=== PATIENT | male | born 1950 | race Caucasian/White ===

== ENCOUNTER 2023-03-25 03:45 | Inpatient (IN) | payer MEDICARE, SELFPAY ==
[2023-03-24 21:43] VITALS: BP 123/73
[2023-03-24 21:44] VITALS: BP 123/73
[2023-03-24 21:47] VITALS: BMI 21.6
[2023-03-24 21:56] LABS: Venous Blood Gas B.E. -2.4 mmol/L (-4 to +4); Venous Blood Gas HCO3 24.5 mmol/L (22-27); Venous Blood Gas O2 Sat % 42.8 %; Venous Blood Gas pCO2 51 mmHg (35-48); Venous Blood Gas pH 7.29 (7.32-7.43); Venous Blood Gas pO2 30 mmHg (30-50)
[2023-03-24 21:57] LABS: % Basophils 0.6 % (0-2); % Eosinophils 0.2 % (0-6); % Immature Granulocytes 0.4 % (0-0.5); % Lymphocytes 3.2 % (20.5-51.1); % Monocytes 2.1 % (1.7-9.3); % Neutrophils 93.5 % (42.2-75.2); Absolute Basophils 0.1 10^3/uL (0-0.2); Absolute Immature Granulocytes 0.1 10^3/uL (0-0.05); Absolute Lymphocytes 0.6 10^3/uL (1.2-3.4); Absolute Monocytes 0.4 10^3/uL (0.1-0.6); Absolute Neutrophils 17.2 10^3/uL (1.4-6.5); Hematocrit 33.1 % (39.0-52.0); Hemoglobin 10.8 g/dL (13.0-18.0); Mean Corp Hgb Conc. 32.6 g/dL (33.0-37.0); Mean Corpuscular Hgb 29.1 pg (27.0-31.0); Mean Corpuscular Volume 89.2 fL (80.0-94.0); Nucleated Red Blood Cells % 0 % (-); Platelet Count 310 10^3/uL (130-400); Red Blood Cell Count 3.71 10^6/uL (4.70-6.10); Red Cell Dist. Width 16.9 % (11.5-14.5); White Blood Cell Count 18.4 10^3/uL (4.8-10.8)
[2023-03-24 22:00] VITALS: BP 105/64
[2023-03-24 22:10] LABS: ALT (SGPT) 26 U/L (0-50); AST (SGOT) 26 U/L (17-59); Albumin 3.6 g/dl (3.5-5.0); Alkaline Phosphatase 100 U/L (38-126); Blood Urea Nitrogen 80 mg/dl (9-20); Calcium 11.4 mg/dl (8.4-10.2); Carbon Dioxide 23 mmol/L (22-30); Chloride 103 mmol/L (98-107); Estimated Creatinine Clearance 28 ml/min; Glucose 126 mg/dl (70-99); Potassium 4.9 mmol/L (3.5-5.1); Sodium 137 mmol/L (135-145); Total Bilirubin 0.7 mg/dl (0.2-1.3); Total Protein 7.1 g/dl (6.3-8.2); eGFR 34.81
[2023-03-24 22:15] LABS: COVID-19 Antigen Negative (Negative)
[2023-03-24 22:22] LABS: NT-proBNP 340 pg/ml; Troponin I 0.018 ng/ml
--- NOTE | 2023-03-24 22:22 | ED.GENMED ---
History of Present Illness
General
Chief Complaint: Breathing Problem
Source: patient and family (Sister)
Exam Limitations: none
Time Seen by Provider: 03/24/23 22:02
Travel History
Have you had any contact with someone who has COVID-19?: No
Do you have any symptoms of coronavirus? Fever > 100 degrees, chills, cough, shortness of breath, sore throat, loss of taste or smell, muscle aches, or headache?: No
History of Present Illness
History of Present Illness:
This is a 73 year old male that comes in with c/o SOB. States that he is always SOB but today this got worse. States that he started with some low back pain. States that he has a cough. Denies any fever, chills, chest pain, abd pain, nausea,
vomiting, diarrhea, headache, dizziness. Patient has an indwelling galeano catheter.
Past History
Past History
ED Past Medical History: COPD (Emphysema), HTN, Hypothyroidism and Other (Hiatal hernia, Esophageal vidya)
ED Past Surgical History: Other (Cataracts, Hernia repair)
Social History
Tobacco: Former smoker
Alcohol: None
Personal: Single
Living: with family
Review of Systems
Review of Systems
All Other Systems: ROS reviewed and negative except as documented in HPI and ROS
Constitutional: Reports no symptoms; Denies fever or chills
EENT: Reports no symptoms
Respiratory: Reports cough and trouble breathing
Cardiac: Reports no symptoms; Denies chest pain
ABD/GI: Reports no symptoms; Denies abdominal pain, nausea, vomiting or diarrhea
: Reports no symptoms
Musculoskeletal: Reports back pain (Low back pain)
Skin: Reports no symptoms
Neurological: Reports no symptoms; Denies dizzy or headache
Psychiatric: Reports no symptoms
Phy Exam
General Physical Exam
General Presentation: mild distress
General age: appears stated age
General Skin: warm and dry
General Habitus: elderly
General Mental: alert
General Hydration: dry mucous membranes
ENT Exam
ENT Exam: TM's normal, pharynx normal and neck supple
Eye Exam
Eye Exam: EOMI
Cardiovascular Exam
Cardiovascular Exam: normal peripheral pulses and tachycardia
Pulmonary Exam
Pulmonary Exam: no rales, chest non tender, no crackles, no rhonchi, no wheezing, decreased breath sounds (at bases, ) and other (moist cough noted)
Gastrointestinal Exam
Gastrointestinal Exam: normal bowel sounds, non tender, soft, no organomegaly, no pulsatile mass and non distended
Musculoskeletal Exam
Musculoskeletal Exam: full ROM and edema (R>L pitting +2 lower legs)
Skin Exam
Skin Exam: normal color, warm/dry, no rash and no petechia
Psychiatric Exam
Psychiatric Exam: normal mood/affect
Scores
Heart Failure Risk
Heart Failure Risk Score: Not Applicable
Course
Orders/Labs/Results
Orders:
Orders
03/24/23 21:47
Electrocardiogram (*1) Urgent
Reason for Study: Other
Other Reason for Exam: Respiratory Distress
Cardiac Monitoring- Treatment ONCE
EKG- Treatment ONCE
IV Insert/Care/Rem.- Treatment PRN
O2 Therapy [RESP] Urgent
Titrate/Wean O2 to maintain O2 sat greater than (%): 93
Special Instructions: TO MAINTAIN CONTINUOUS O2 SATS >/= 93%
Pulse Ox/cont/shift [RESP] Urgent
Quantity: 1
Special Instructions: continuous pulse ox
03/24/23 21:49
Complete Blood Count/With Diff Urgent
Comprehensive Metabolic Panel Urgent
NT-proBNP Urgent
Troponin I Urgent
Venous Blood Gas Urgent
%Oxygen/Room Air: 87
03/24/23 21:51
COVID-19 Antigen Urgent
Source: Nasal Swab
Influenza A+B Rapid Molecular Urgent
JAMEY Source: Nasal Swab
Specimen Description:
03/24/23 22:13
CR Chest Portable - 1 View Urgent
Comment:
Reason For Exam: SOB
Reason Study Needs to be Portable: Patient Unstable
03/24/23 22:37
Urinalysis Reflex To Culture Urgent
Date Specimen was Collected: 03/24/23
Time Specimen was Collected: 22:36
Urine Microscopic Reflex Cult Urgent
Urine Culture Urgent
JAMEY Source: U
Specimen Description:
Date Specimen was Collected: 03/24/23
Time Specimen was Collected: 22:36
03/24/23 22:53
Cefepime HCl [Maxipime] 2,000 mg IV NOW STA
Vancomycin 1 Gram/200 ml [Vancocin] 1 gram in 200 ml IV NOW
03/24/23 22:57
Acetaminophen 1000MG/100Ml [Ofirmev] 1,000 mg in 100 ml IV ONCE
Acetaminophen IV Indication:: ED Narcotic Naive Pt-ONCE
Abnormal Lab Results
03/24/23 03/24/23
21:49 22:37
WBC 18.4 H 10^3/uL
(4.8-10.8)
RBC 3.71 L 10^6/uL
(4.70-6.10)
Hgb 10.8 L g/dL
(13.0-18.0)
Hct 33.1 L %
(39.0-52.0)
MCHC 32.6 L g/dL
(33.0-37.0)
RDW 16.9 H %
(11.5-14.5)
Abs Immat Gran (auto) 0.1 H 10^3/uL
(0-0.05)
Absolute Neuts (auto) 17.2 H 10^3/uL
(1.4-6.5)
Absolute Lymphs (auto) 0.6 L 10^3/uL
(1.2-3.4)
Neutrophils % 93.5 H %
(42.2-75.2)
Lymphocytes % 3.2 L %
(20.5-51.1)
VBG pH 7.29 L
(7.32-7.43)
VBG pCO2 51 H mmHg
(35-48)
BUN 80 H mg/dl
(9-20)
Creatinine 2.0 H mg/dL
(0.7-1.3)
Glucose 126 H mg/dl
(70-99)
Calcium 11.4 H mg/dl
(8.4-10.2)
Ur Occult Blood Reflex 4+ A
(Negative)
Leukocyte Esterase Rfl 2+ A
(Negative)
Urine RBC 21-25 A /HPF
(0-2)
Urine WBC (Reflex) >100 A /HPF
(0-5)
Urine Bacteria (Reflex) Many A
(Negative)
Urine Albumin (Reflex) 1+ A
(Neg - Trace)
03/24/23 21:49
03/24/23 21:49
Leukocytosis, H/H low. Acute renal failure, Glucose nonfasting. Calcium slightly elevated. Venous blood gas show respiratory acidosis.
COVID negative. Troponin 0.018, Pro-BNP 340
Vital Signs
Initial and Last Documented VS:
Initial Vital Signs
Temp Pulse Resp BP
98.3 F 143 22 123/73
03/24/23 21:43 03/24/23 21:43 03/24/23 21:43 03/24/23 21:43
Last Documented Vital Signs
Temp Pulse Resp BP Pulse Ox
98.3 F 137 34 105/64 94
03/24/23 21:43 03/24/23 22:45 03/24/23 22:45 03/24/23 22:00 03/24/23 22:45
MDM/Problems Addressed
Differential Diagnosis Includes:
SOB, Renal failure,
MDM/Problems Addressed:
This is a 73 year old male that comes in with c/o increased SOB. States that he also has low back pain.
Will get labs and chest x-ray. Will admit patient.
Back into see patient. Explained that he will be admitted as patient has a right lower lobe Pneumonia and is in renal failure. Will start IV antibiotics. Hospitalist notified.
Chronic conditions affecting care: COPD
Acute Exacerbation and/or Progression of Chronic Illness: COPD
*Pulse Oximetry
Patient hypoxic: no
*EKG
Interpreted by ED Provider?: Yes
Heart Rate: 144
Rate: tachycardiac
Rhythm: sinus tachycardia
Flatgap: normal axis
Interval: normal interval
QRS Pattern: normal QRS
Ischemia: non-specific ST changes
*[employer]house [employer] Interpretation
Rate: tachycardiac
Heart Rate: 141
Rhythm: sinus tachycardia
*Critical Care Note
Total Time (30-74mins, 75-104mins- exclusive of procedures): Not Applicable
ED Attending Note
-
Portions of this chart may have been created with voice recognition software.� Occasional wrong word or��sound alike� substitutions may have occurred due to the inherent limitations of voice recognition software.
Discharge Plan
Departure
Patient Disposition: Admit
Date of Disposition: 03/24/23
Time of Disposition: 23:01
Admit to: Telemetry
Presentation/result/management discussed w/ accepting MD/DO: Hospitalist
Patient with high blood pressure during this ER visit?: No
Condition: Fair
Covid-19: Negative COVID-19
Discharge Problem:
Right lower lobe pneumonia, Acute renal failure
Prescriptions:
No Action
atorvastatin [Lipitor] 20 mg Tablet
20 mg PO DAILY
levothyroxine [Synthroid] 75 mcg Tablet
75 mcg PO DAILY AT 0700
tamsulosin [Flomax] 0.4 mg Capsule
0.4 mg PO DAILY
nicotine (polacrilex) 4 mg Gum
4 mg BUCCAL Q2H
fluticasone propion-salmeterol [Advair Diskus] 500-50 mcg/dose Blister With Device
1 inh INHALATION R BID
albuterol sulfate [ProAir HFA] 90 mcg/actuation Hfa Aerosol Inhaler
2 puff INHALATION R Q6HPRN PRN (Reason: sob)
acetaminophen [Tylenol Extra Strength] 500 mg Tablet
1,000 mg PO BID
Culturelle 10 billion cell Capsule
1 cap PO DAILY
simethicone 80 mg Tablet,Chewable
80 mg PO BID
krill oil 500 mg Capsule
500 mg PO DAILY
Spiriva Respimat 2.5 mcg/actuation Mist
2 inh INHALATION R DAILY
[facility] 3 billion cell Capsule
2 cap PO DAILY Qty: 0 0RF
ceftriaxone 2 gram recon soln
2,000 mg IV QPM
Patient Comments:
PATIENT EXTENDED FOR ANOTHER 3 WEEKS STARTING 02-27-23 PER HIS PCP
fluconazole 200 mg Tablet
200 mg PO DAILY Qty: 18 0RF
pantoprazole 40 mg Tablet,Delayed Release (Dr/Ec)
40 mg PO DAILY Qty: 30 0RF
loperamide 2 mg Tablet
4 mg PO BID PRN (Reason: diarrhea) Qty: 0 0RF
Interventions
Interventions:
*Risk Screen - Suicide Last Done: 03/24/23 21:48
*General Assessment Last Done: 03/24/23 21:48
*Neglect/Abuse Screening Last Done: 03/24/23 21:48
ED- Fall Risk Assessment Last Done: 03/24/23 21:54
*ED COVID-19 Vaccine History Last Done: 03/24/23 21:48
ED- Cardiac Assessment Last Done: 03/24/23 21:52
ED- Pulmonary Assessment Last Done: 03/24/23 21:52
[2023-03-24 22:43] LABS: Urine Albumin 1+ (Neg - Trace); Urine Bilirubin Negative (Negative); Urine Character Very Cloudy (Clear); Urine Color Yellow; Urine Glucose Negative (Negative); Urine Ketone Negative (Negative); Urine Leukocyte 2+ (Negative); Urine Nitrite Negative (Negative); Urine Occult Blood 4+ (Negative); Urine Specific Gravity 1.015 (<1.030); Urine Urobilinogen Negative (Neg - 1+)
[2023-03-24 22:54] LABS: Urine Squamous Cell 0-2 /LPF (Few)
[2023-03-24 22:55] LABS: Urine Bacteria Many (Negative); Urine Red Blood Cell 21-25 /HPF (0-2); Urine White Cell >100 /HPF (0-5); Urine White Cell Cast >15 /LPF
[2023-03-24 23:00] VITALS: BP 105/61
[2023-03-24] MEDS: MAXIPIME 2000 MG IV (23:19)
[2023-03-24] MEDS: OFIRMEV 100 IV (23:29)
[2023-03-24] MEDS: VANCOCIN 200 IV (23:45)
[2023-03-25] VITALS (50 sets, daily range): BP systolic 95–184; BP diastolic 55–123; PULSE 2–100; BMI 21.0
--- NOTE | 2023-03-25 00:07 | ED.GENMED ---
History of Present Illness
General
Chief Complaint: Breathing Problem
Time Seen by Provider: 03/24/23 22:02
Travel History
Have you had any contact with someone who has COVID-19?: No
Do you have any symptoms of coronavirus? Fever > 100 degrees, chills, cough, shortness of breath, sore throat, loss of taste or smell, muscle aches, or headache?: No
Past History
Past History
ED Past Medical History: COPD (Emphysema), HTN, Hypothyroidism and Other (Hiatal hernia, Esophageal vidya)
ED Past Surgical History: Other (Cataracts, Hernia repair)
Social History
Tobacco: Former smoker
Alcohol: None
Personal: Single
Living: with family
Course
Orders/Labs/Results
Orders:
Orders
03/24/23 21:47
Electrocardiogram (*1) Urgent
Reason for Study: Other
Other Reason for Exam: Respiratory Distress
Cardiac Monitoring- Treatment ONCE
EKG- Treatment ONCE
IV Insert/Care/Rem.- Treatment PRN
O2 Therapy [RESP] Urgent
Titrate/Wean O2 to maintain O2 sat greater than (%): 93
Special Instructions: TO MAINTAIN CONTINUOUS O2 SATS >/= 93%
Pulse Ox/cont/shift [RESP] Urgent
Quantity: 1
Special Instructions: continuous pulse ox
03/24/23 21:49
Complete Blood Count/With Diff Urgent
Comprehensive Metabolic Panel Urgent
NT-proBNP Urgent
Troponin I Urgent
Venous Blood Gas Urgent
%Oxygen/Room Air: 87
03/24/23 21:51
COVID-19 Antigen Urgent
Source: Nasal Swab
Influenza A+B Rapid Molecular Urgent
JAMEY Source: Nasal Swab
Specimen Description:
03/24/23 22:13
CR Chest Portable - 1 View Urgent
Comment:
Reason For Exam: SOB
Reason Study Needs to be Portable: Patient Unstable
03/24/23 22:37
Urinalysis Reflex To Culture Urgent
Date Specimen was Collected: 03/24/23
Time Specimen was Collected: 22:36
Urine Microscopic Reflex Cult Urgent
Urine Culture Urgent
JAMEY Source: U
Specimen Description:
Date Specimen was Collected: 03/24/23
Time Specimen was Collected: 22:36
03/24/23 22:53
Cefepime HCl [Maxipime] 2,000 mg IV NOW STA
Vancomycin 1 Gram/200 ml [Vancocin] 1 gram in 200 ml IV NOW
03/24/23 22:57
Acetaminophen 1000MG/100Ml [Ofirmev] 1,000 mg in 100 ml IV ONCE
Acetaminophen IV Indication:: ED Narcotic Naive Pt-ONCE
03/24/23 23:18
Sterile Water [Sterile Water For Injection] 10 ml .ROUTE .STK-MED ONE
Abnormal Lab Results
03/24/23 03/24/23
21:49 22:37
WBC 18.4 H 10^3/uL
(4.8-10.8)
RBC 3.71 L 10^6/uL
(4.70-6.10)
Hgb 10.8 L g/dL
(13.0-18.0)
Hct 33.1 L %
(39.0-52.0)
MCHC 32.6 L g/dL
(33.0-37.0)
RDW 16.9 H %
(11.5-14.5)
Abs Immat Gran (auto) 0.1 H 10^3/uL
(0-0.05)
Absolute Neuts (auto) 17.2 H 10^3/uL
(1.4-6.5)
Absolute Lymphs (auto) 0.6 L 10^3/uL
(1.2-3.4)
Neutrophils % 93.5 H %
(42.2-75.2)
Lymphocytes % 3.2 L %
(20.5-51.1)
VBG pH 7.29 L
(7.32-7.43)
VBG pCO2 51 H mmHg
(35-48)
BUN 80 H mg/dl
(9-20)
Creatinine 2.0 H mg/dL
(0.7-1.3)
Glucose 126 H mg/dl
(70-99)
Calcium 11.4 H mg/dl
(8.4-10.2)
Ur Occult Blood Reflex 4+ A
(Negative)
Leukocyte Esterase Rfl 2+ A
(Negative)
Urine RBC 21-25 A /HPF
(0-2)
Urine WBC (Reflex) >100 A /HPF
(0-5)
Urine Bacteria (Reflex) Many A
(Negative)
Urine Albumin (Reflex) 1+ A
(Neg - Trace)
03/24/23 21:49
03/24/23 21:49
Vital Signs
Initial and Last Documented VS:
Initial Vital Signs
Temp Pulse Resp BP
98.3 F 143 22 123/73
03/24/23 21:43 03/24/23 21:43 03/24/23 21:43 03/24/23 21:43
Last Documented Vital Signs
Temp Pulse Resp BP Pulse Ox
98.3 F 137 34 105/64 94
03/24/23 21:43 03/24/23 22:45 03/24/23 22:45 03/24/23 22:00 03/24/23 22:45
ED Attending Note
-
Portions of this chart may have been created with voice recognition software.� Occasional wrong word or��sound alike� substitutions may have occurred due to the inherent limitations of voice recognition software.
Discharge Plan
Departure
Patient Disposition: Admit
Date of Disposition: 03/24/23
Time of Disposition: 23:01
Admit to: Telemetry
Presentation/result/management discussed w/ accepting MD/DO: Hospitalist
Patient with high blood pressure during this ER visit?: No
Condition: Fair
Covid-19: Negative COVID-19
Discharge Problem:
Right lower lobe pneumonia, Acute renal failure
Prescriptions:
No Action
atorvastatin [Lipitor] 20 mg Tablet
20 mg PO DAILY
levothyroxine [Synthroid] 75 mcg Tablet
75 mcg PO DAILY AT 0700
tamsulosin [Flomax] 0.4 mg Capsule
0.4 mg PO DAILY
nicotine (polacrilex) 4 mg Gum
4 mg BUCCAL Q2H
fluticasone propion-salmeterol [Advair Diskus] 500-50 mcg/dose Blister With Device
1 inh INHALATION R BID
albuterol sulfate [ProAir HFA] 90 mcg/actuation Hfa Aerosol Inhaler
2 puff INHALATION R Q6HPRN PRN (Reason: sob)
acetaminophen [Tylenol Extra Strength] 500 mg Tablet
1,000 mg PO BID
Culturelle 10 billion cell Capsule
1 cap PO DAILY
simethicone 80 mg Tablet,Chewable
80 mg PO BID
Spiriva Respimat 2.5 mcg/actuation Mist
2 inh INHALATION R DAILY
[facility] 3 billion cell Capsule
2 cap PO DAILY Qty: 0 0RF
fluconazole 200 mg Tablet
200 mg PO DAILY Qty: 18 0RF
loperamide 2 mg Tablet
4 mg PO BID PRN (Reason: diarrhea) Qty: 0 0RF
omeprazole 10 mg Capsule,Delayed Release(Dr/Ec)
10 mg PO DAILY
Interventions
Interventions:
*Risk Screen - Suicide Last Done: 03/24/23 21:48
*General Assessment Last Done: 03/24/23 21:48
*Neglect/Abuse Screening Last Done: 03/24/23 21:48
ED- Fall Risk Assessment Last Done: 03/24/23 21:54
*ED COVID-19 Vaccine History Last Done: 03/24/23 21:48
ED- Cardiac Assessment Last Done: 03/24/23 23:30
ED- Pulmonary Assessment Last Done: 03/24/23 23:59
[2023-03-25] MEDS: NSS 1000 IV ×2 (00:48→04:57)
[2023-03-25] MEDS: DECADRON 20 MG IV (01:15)
[2023-03-25] MEDS: XOPENEX 1.25 MG INHALANT SOLUTION INH ×3 (01:15→19:59)
[2023-03-25] MEDS: MORPHINE SULFATE 2 MG IV ×4 (02:37→13:37)
--- NOTE | 2023-03-25 02:41 | HPS.HSE ---
Family Physician
-
Family Physician: Michael Green MD
Chief Complaint
-
Allergies
Allergy/AdvReac Type Severity Reaction Status Date / Time
sulfamethoxazole Allergy Unknown Verified 03/24/23 21:43
[From Bactrim]
trimethoprim [From Bactrim] Allergy Unknown Verified 03/24/23 21:43
Home Medications
Lactobacillus rhamnosus GG 10 billion cell capsule (Culturelle) 1 cap PO DAILY probiotic 01/20/23
acetaminophen 500 mg tablet (Tylenol Extra Strength) 1,000 mg PO BID Pain 01/20/23
albuterol sulfate 90 mcg/actuation aerosol inhaler (ProAir HFA) 2 puff inhalation R Q6HPRN PRN sob 01/20/23
atorvastatin 20 mg tablet (Lipitor) 20 mg PO DAILY High Cholesterol 01/20/23
fluticasone 500 mcg-salmeterol 50 mcg/dose blistr powdr for inhalation (Advair Diskus) 1 inh inhalation R BID Lung/Breathing Issues 01/20/23
levothyroxine 75 mcg tablet (Synthroid) 75 mcg PO DAILY AT 0700 Thyroid 01/20/23
nicotine (polacrilex) 4 mg gum 4 mg buccal Q2H Smoking Cessation 01/20/23
simethicone 80 mg chewable tablet 80 mg PO BID gas 01/20/23
tamsulosin 0.4 mg capsule (Flomax) 0.4 mg PO DAILY Urinary Issue 01/20/23
tiotropium bromide 2.5 mcg/actuation mist for inhalation (Spiriva Respimat) 2 inh inhalation R DAILY Lung/Breathing Issues 01/20/23
Lactobacillus rhamnosus-Bifidobac. animalis 3 billion cell capsule (BrightLine) 2 cap PO DAILY probiotic #0 caps 01/29/23
fluconazole 200 mg tablet 200 mg PO DAILY #18 tabs 03/10/23
loperamide 2 mg tablet 4 mg PO BID PRN diarrhea #0 tabs 03/10/23
omeprazole 10 mg capsule,delayed release 10 mg PO DAILY 03/24/23
History of Present Illness
The patient is a 73 yo male with PMH significant for discharged from the hospital 03/10/23 due to Pulmonary Nocardia infection and severe COPD and has not tolerated outpatient IV Rocephin and has declined oral antibiotics, with discussion regarding
Palliative care, per discussion with the patient's sister. The patient comes to the ED with acute worsening of dyspnea at rest and on exertion along with significant lower back pain. He has redness of sacral region from pressure wound, no skin tear
noted at bedside. He sees Dr. Guillory outpatient. He denies CP, no n/v/d, no abdominal complaints. No fevers. He has a cough and SOB and increased work of breathing that he is attributing to low back discomfort from the bed sheets sticking to his low
back. He has chronic indwelling Cohen catheter.
ED txt:
IV Cefepime
IV Vancomycin
Ofirmev
IV fluid bolus 1 L
Decadron 20 mg IV once
Xopenex
Morphine 2 mg IV once
Medical History
Past Medical History
Past Medical History: Reports Other
Additional Past Medical History:
chronic hypoxic respiratory failure
Nocardia infection
COPD
htn
LE edema
GERD
BPH
urinary retention
HLD
hypothyroidism
Past Surgical History: Reports Other
Additional Past Surgical History:
Bilateral cataract surgery
Hernia repair
Social History
Tobacco: Former Smoker
Alcohol: Former
Drug: None
Personal: Single
Living: With Family
Family History
Family History: Not pertinent
Allergies / Home Medications
Allergies reflects when Allergies were last updated in [facility].
Home Medications with original date entered in [facility]
Allergy/Medication List:
Allergies
Allergy/AdvReac Type Severity Reaction Status Date / Time
sulfamethoxazole Allergy Unknown Verified 03/24/23 21:43
[From Bactrim]
trimethoprim [From Bactrim] Allergy Unknown Verified 03/24/23 21:43
Home Medications
Lactobacillus rhamnosus GG 10 billion cell capsule (Culturelle) 1 cap PO DAILY probiotic 01/20/23
acetaminophen 500 mg tablet (Tylenol Extra Strength) 1,000 mg PO BID Pain 01/20/23
albuterol sulfate 90 mcg/actuation aerosol inhaler (ProAir HFA) 2 puff inhalation R Q6HPRN PRN sob 01/20/23
atorvastatin 20 mg tablet (Lipitor) 20 mg PO DAILY High Cholesterol 01/20/23
fluticasone 500 mcg-salmeterol 50 mcg/dose blistr powdr for inhalation (Advair Diskus) 1 inh inhalation R BID Lung/Breathing Issues 01/20/23
levothyroxine 75 mcg tablet (Synthroid) 75 mcg PO DAILY AT 0700 Thyroid 01/20/23
nicotine (polacrilex) 4 mg gum 4 mg buccal Q2H Smoking Cessation 01/20/23
simethicone 80 mg chewable tablet 80 mg PO BID gas 01/20/23
tamsulosin 0.4 mg capsule (Flomax) 0.4 mg PO DAILY Urinary Issue 01/20/23
tiotropium bromide 2.5 mcg/actuation mist for inhalation (Spiriva Respimat) 2 inh inhalation R DAILY Lung/Breathing Issues 01/20/23
Lactobacillus rhamnosus-Bifidobac. animalis 3 billion cell capsule (BrightLine) 2 cap PO DAILY probiotic #0 caps 01/29/23
fluconazole 200 mg tablet 200 mg PO DAILY #18 tabs 03/10/23
loperamide 2 mg tablet 4 mg PO BID PRN diarrhea #0 tabs 03/10/23
omeprazole 10 mg capsule,delayed release 10 mg PO DAILY 03/24/23
Review of Systems
-
A 12 point ROS was completed and negative except as noted: Yes
Physical Exam
Vital Signs
Vital Signs
Temp Pulse Resp BP Pulse Ox
98.4 F 118 26 131/86 94
03/25/23 00:37 03/25/23 02:00 03/25/23 02:00 03/25/23 02:00 03/25/23 02:00
Physical Exam
General: Appears Chronically Ill, Cachectic and Other (respiratory distress)
HEENT: NormoCephalic and Anicteric
Respiratory: Rales, Rhonchi and Accessory Resp Muscle Use
Cardiac: S1/S2 and Tachycardia
GI: Soft, Non Tender and Non Distended
Musculoskeletal: No Clubbing, No Cyanosis and No Edema
Skin: Warm and Dry
Neuro: No Motor Deficits and Nonfocal/grossly intact
Psych: Agitated (dyspnea)
Laboratory Results
-
03/24/23 21:49
03/24/23 21:49
Laboratory Results
Total Bilirubin 0.7 mg/dl (0.2-1.3) 03/24/23 21:49
AST 26 U/L (17-59) 03/24/23 21:49
ALT 26 U/L (0-50) 03/24/23 21:49
Alkaline Phosphatase 100 U/L (38-126) 03/24/23 21:49
Troponin I 0.018 ng/ml 03/24/23 21:49
Impression/Plan
-
IMPRESSION:
The patient is a 73 yo male with PMH significant for discharged from the hospital 03/10/23 due to Pulmonary Nocardia infection and severe COPD and has not tolerated outpatient IV Rocephin and has declined oral antibiotics, with discussion regarding
Palliative care, per discussion with the patient's sister. The patient comes to the ED with acute worsening of dyspnea at rest and on exertion along with significant lower back pain. He has redness of sacral region from pressure wound, no skin tear
noted at bedside. He sees Dr. Guillory outpatient. He denies CP, no n/v/d, no abdominal complaints. No fevers. He has a cough and SOB and increased work of breathing that he is attributing to low back discomfort from the bed sheets sticking to his low
back. He has chronic indwelling Cohen catheter.
ED txt:
IV Cefepime
IV Vancomycin
Ofirmev
IV fluid bolus 1 L
Decadron 20 mg IV once
Xopenex
Morphine 2 mg IV once
#Concern for sepsis due to pneumonia likely bacteria, health-care associated, patchy infiltrates worse than prior exam, pending radiology report, associated with tachypnea and increased work of breathing
WBC 18.4, tachycardia, tachypnea, pH 7.29
-Cont IV Cefepime and IV Vancomycin
-IVF
-ID Cx
-blood ,urine, sputum cultures, MAXI
#COPD exacerbation
-Nebs, steroids, O2
#Nocardia infection, not currently treated s/p IV Rocephin not tolerated nor orals
-discuss with ID in am
-O2
-cont IV abx for possible bacterial superinfection
#YAO, concern for dehydration
creat 2.0 from 1.5 (03/10/23)
-IVF, renally dose meds, repeat labs in am and monitor electrolytes
#UTI, complicated by chronic indwelling Cohen catheter
-blood and urine cx
-IV abx
#Hypercalcium
-Check ionized calcium , IVF, repeat labs in am and monitor
Chronic medical issues:
chronic hypoxic respiratory failure
Nocardia infection
HTN
LE edema
GERD
BPH
urinary retention, Cohen catheter care
HLD
Hypothyroidism
DNR, DNI
DVT proph - Lovenox
[2023-03-25 03:46] LABS: HCO3 16.6 mmol/L (21-28); O2 Saturation % 99.1 % (94-98); PCO2 30 mmHg (35-48); PO2 103 mmHg (83-108); pH 7.35 (7.35-7.45)
[2023-03-25] MEDS: DECADRON 4 MG IV ×3 (04:57→19:35)
[2023-03-25 05:09] LABS: Hematocrit 31.6 % (39.0-52.0); Hemoglobin 10.2 g/dL (13.0-18.0); Mean Corp Hgb Conc. 32.3 g/dL (33.0-37.0); Mean Corpuscular Hgb 28.9 pg (27.0-31.0); Mean Corpuscular Volume 89.5 fL (80.0-94.0); Mean Platelet Volume 9.6 fL (7.4-10.4); Platelet Count 287 10^3/uL (130-400); Red Blood Cell Count 3.53 10^6/uL (4.70-6.10); Red Cell Dist. Width 17.1 % (11.5-14.5); White Blood Cell Count 14.3 10^3/uL (4.8-10.8)
--- NOTE | 2023-03-25 05:15 | PTCARENOTE ---
Received pt from ED RN. Pt pulled over from the stretcher to our bed. Pt arrived on bipap, pt unable to tolerate it, pt placed on 15L midflow, O2 sat 93%, lungs are diminished, tachypneic, pursed lip breathing. AAOx3. Sinus tach on the monitor, RLE
+2 edema and LLE +1 edema. Chronic galeano in place, hygiene provided. PRN Morphine provided due to SOB. Pt c/o 10/ back pain, ANGELICA Kwan notified. CHG bath provided. Pt is laying in bed with call huerta in reach.
[2023-03-25] MEDS: SYNTHROID 75 MCG PO (05:22)
[2023-03-25 05:49] LABS: ALT (SGPT) 26 U/L (0-50); AST (SGOT) 29 U/L (17-59); Albumin 3.4 g/dl (3.5-5.0); Alkaline Phosphatase 92 U/L (38-126); Blood Urea Nitrogen 80 mg/dl (9-20); Calcium 10.3 mg/dl (8.4-10.2); Carbon Dioxide 16 mmol/L (22-30); Chloride 109 mmol/L (98-107); Estimated Creatinine Clearance 25 ml/min; Glucose 123 mg/dl (70-99); Sodium 136 mmol/L (135-145); Total Bilirubin 0.6 mg/dl (0.2-1.3); Total Protein 6.7 g/dl (6.3-8.2); eGFR 31.05
[2023-03-25 06:32] LABS: Hepatitis C Antibody Negative (Negative)
[2023-03-25] MEDS: VENTOLIN NEBULES 2.5 MG INH (07:28)
[2023-03-25 08:06] LABS: Absolute Neutrophils -Man Diff 13.4 10^3/uL (1.4-6.5); Band Neutrophils 18 % (0-3); Segmented Neutrophils 76 % (42-75)
[2023-03-25 08:07] LABS: Lymphocytes 1 % (20-51); Metamyelocytes 3 % (-); Monocytes 1 % (2-9); Myelocytes 1 % (-); Normal RBC Morphology Yes; Platelets Checked Yes; Total Cells Counted 100
[2023-03-25] MEDS: PROTONIX 10 MG PO (08:42)
[2023-03-25] MEDS: HEPARIN 5000 UNITS SC ×2 (08:43→19:35)
--- NOTE | 2023-03-25 08:51 | W.PN.HOSP.TC ---
Today's Communication/Plan
-
check STAT ABG
tachycardic/tachypneic--will not be able to sustain himself--now FULL CODE
transfer to ICU
consult underwear trimmer
await ID
will likely need intubation soon
Assessment / Plan
Assessment / Plan
pt is a 73 year old male
Severe sepsis with metabolic acidosis, hypoxemic respiratory failure due to pneumonia (likely bacteria, health-care associated, patchy infiltrates worse than prior exam) UTI (CAUTI POA as pt with chronic galeano on admission) and YAO--
WBC 18.4, tachycardia, tachypnea, pH 7.29--transfer to ICU--pt refuses BiPAP and when asked about code status he says he 'can't think straight'--spoke with sister who reversed code status to FULL CODE at least to give ABX a chance to work--await ID
input--cont vanco/cefepime--check ABG--cont sepsis IVF--follow cultures--consult underwear trimmer--check STAT ABG--cont nebs/steroids--likely will be intubated before days' end
COPD exacerbation--Nebs, steroids, O2
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
YAO-- likely due to sepsis--creat worsening--cont IVF and ASSEMBLY HAND galeano--consider renal consult--creat 2.0 from 1.5 (03/10/23)
UTI--(CAUTI as pt with chronic galeano cath on admission) --blood and urine cx--IV abx
Hypercalcemia--Check ionized calcium , IVF, repeat labs in am and monitor
Chronic medical issues:
chronic hypoxic respiratory failure
Nocardia infection--as able
Essential HTN
LE edema
GERD
BPH
urinary retention, Galeano catheter care
HLD
Hypothyroidism--check TSH
code status--reverse by sister as pt 'cannot think straight'--FULL CODE NOW--will need intubation
DVT proph - Lovenox
spoke with sister
Total Critical Care Time 40 minutes. I was immediately available to the patient and staff. I personally examined, reviewed labs, diagnostic images/reports, interpretations, treatment plans, discussed patient care with other providers and family
or caregivers (if patient is unable to make decisions), entered orders as appropriate and documented the medical record.
Anticipated Discharge: > 48 hours
Subjective/Interval History
-
Date of Service: March 25, 2023
pt in obvious resp distress--on HI--absolutely refuses BIPAP--explained he will be intubated--he understands
Objective Data
-
Labs:
Laboratory Results
03/24/23 03/25/23 03/25/23
21:49 03:40 04:47
WBC 18.4 H 14.3 H
Hgb 10.8 L 10.2 L
Hct 33.1 L 31.6 L
Plt Count 310 287
PT 15.0 H
INR 1.20
HCO3 16.6 L
Sodium 137 136
Potassium 4.9 5.0
Chloride 103 109 H
Carbon Dioxide 23 16 L
BUN 80 H 80 H
Creatinine 2.0 H 2.2 H
Glucose 126 H 123 H
Calcium 11.4 H 10.3 H
Total Bilirubin 0.7 0.6
AST 26 29
ALT 26 26
Alkaline Phosphatase 100 92
Vital Signs:
max temp for 24 hours
03/25/23
00:37
Temp 98.4 F
Vital Signs
Temp Pulse Resp BP Pulse Ox
97.7 F 123 34 136/76 95
03/25/23 07:46 03/25/23 06:00 03/25/23 06:00 03/25/23 06:00 03/25/23 06:00
I&O
03/24/23 03/25/23 03/26/23
06:59 06:59 06:59
Output Total 200 / 200
Balance -200 / -200
Review of Systems
-
Unable to obtain full review of systems at this time due to: Acuity
Physical Exam
-
General: Appears Chronically Ill and Cachectic
HEENT: Normocephalic, Atraumatic and Oxygen (HI RADHA)
Respiratory: Rhonchi (all right lung field)
Cardiac: Regular Rhythm, S1/S2 and Tachycardic
GI: Soft, Nontender, Nondistended and Normal Bowel Sounds
Musculoskeletal: No Clubbing and No Cyanosis; Negative No Edema (trace edema bilaterally)
Skin: Warm
Neuro: Awake
--- NOTE | 2023-03-25 08:55 | PHA.VAN.IN ---
Assessment
- Assessment
Renal Function: Unknown baseline (elevated compared to prior admissions - 2.2 vs low of 1.2)
Concomitant Antimicrobials: cefepime
Plan
- Plan
Initial / Loading Dose: 1000mg - 03/24 23:45 PLUS 500mg x1 today
Maintenance Regimen: dosing by level
Monitoring: random 03/26 0600
MRSA Screen: Ordered per protocol
Pharmacokinetics Vancomycin I
- -
Patient Age: 73
Patient Sex: Male
Vancomycin Day #: 1
Indication: Pulmonary/Respiratory
Requesting Provider: Dr. Bradley
Pertinent Antimicrobial Allergies:
sulfamethoxazole/trimethoprim - unknown
Height / Weight:
Height 5 ft 5 in
Actual Weight 57.2 kg
- Vital Signs / Lab Results
Temp Pulse Resp BP Pulse Ox
97.7 F 123 34 136/76 95
03/25/23 07:46 03/25/23 06:00 03/25/23 06:00 03/25/23 06:00 03/25/23 06:00
Lab Results - Hematology
03/24/23 03/25/23
21:49 04:47
WBC 18.4 H 14.3 H
Band Neutrophils 18 H
Lab Results - Chemistry
03/24/23 03/25/23
21:49 04:47
BUN 80 H 80 H
Creatinine 2.0 H 2.2 H
Estimated Creat Clear 28 25
Albumin 3.6 3.4 L
03/25/23
04:47
Lactic Acid 2.0
Lab Results - Urine
03/24/23
22:37
Urine Nitrite (Reflex) Negative
Leukocyte Esterase Rfl 2+ A
Urine WBC (Reflex) >100 A
Ur Squamous Epith Cells 0-2
Urine Bacteria (Reflex) Many A
Microbiology Results
03/24/23 21:51 Influenza Types A & B (BREANNA) - Final
Nasal Swab Negative for Influenza A & B, NAAT
Negative results must be combined with clinical observations
and patient history.
Nucleic Acid Amplification test (NAAT)performed on the
[employer] platform.
--- NOTE | 2023-03-25 09:16 | PTCARENOTE ---
Patient too short of breath to take po medications at this time. Dr. Galeana to room to see patient. Possible transfer to ICU.
[2023-03-25 09:22] LABS: B.E. -8.5 mmol/L; HCO3 17.3 mmol/L (21-28); PCO2 36 mmHg (35-48); PO2 152 mmHg (83-108); pH 7.29 (7.35-7.45)
--- NOTE | 2023-03-25 09:54 | CM ---
Patient with Dx Severe sepsis with metabolic acidosis, hypoxemic respiratory failure due to PNA, COPD exacerbation, nocardia infection, YAO, UTI. High flow O2. BIPAP. Plan transfer to ICU.
Spoke with patient's sister Aimee;
the patient resides with his sister Aimee in her 2 story house with 2 IBAN.
The patient has not been doing well since he was discharged from a few weeks ago.
He has been sleeping in a chair with ottoman and sitting in same chair most of the day.
He was able to ambulate to the bathroom 12 feet with his RW with multiple stops, to wash up at the sink once every few weeks.
Aimee was assisting the patient with his galeano catheter care.
DME - RW, O2 concentrator/portables through [facility]
No prior VN or SNF.
PCP - Michael Green (not seen yet)
Pharmacy - [facility]
The patient had recently had service with [facility] for home IV Abx which have stopped. He have [facility] nurse for teaching (no VN).
He has a brother and 2 other sisters. Aimee had planned to get POA paperwork completed but did not get around to it.
She thinks patient was referred to Palliative Care but they had not contacted him.
Aimee says she spoke with Dr Chun today and is aware of patient's current status and that he would be transferred to ICU. She expressed concern that he was not doing well and may not be able to return home. She says Dimitris called her after he
arrived here and she spoke with him. Offered Property Maintenance Supervisor for patient and Aimee declined saying patient would not want.
Plan CM continuing to follow for d/c needs.
Plan TBD.
[2023-03-25] MEDS: DIFLUCAN PO (10:15)
[2023-03-25] MEDS: FLOMAX PO (10:16)
--- NOTE | 2023-03-25 10:27 | CON.INTV ---
Consultation
Consultation Request
Date/Time Consultation Requested: 03/25/2023 - 1003
Date/Time Consultation Performed: 03/25/2023 - 1004
Requesting Provider: Dr. Chun
Performing Provider: Dr. Slade
Reason for Consultation: SOB/hypoxia
Medical History
-
Chief Complaint: SOB
History of Present Illness:
73-year-old male with a past medical history of COPD, emphysema, pulmonary nocardiosis and chronic hypoxemic respiratory failure on 3 L/min with exertion who was recently hospitalized from 03/04or acute anemia with heme positive stool
found to have esophageal candidiasis on EGD with polyps and diverticulosis on colonoscopy. Patient now presents with shortness of breath and body aches. Patient afebrile in the ER to 98.4 �F, tachycardic to 115, tachypneic to 32, and initially
required aerosol mask. Imaging was suggestive of a recurrent bilateral pneumonia. Labs suggestive of YAO, hypercalcemia, leukocytosis, anemia with Hb 10.8, platelets 310. COVID antigen negative. Urinalysis positive suggestive of UTI. Patient
started on antibiotics in the ER, given 1 L NS, Decadron 20 mg, Xopenex and admitted to the IMU for further care. His oxygen requirements unfortunately worsened and he became more tachypneic/SOB and was transferred to ICU this morning for further
care, and critical care services consulted for additional management/recommendations.
When I saw the patient this morning he was clearly in respiratory distress, on high flow nasal cannula, refused to go on BiPAP, and a previous conversation held between the hospitalist and patient's sister I decided to change CODE STATUS to full
code. Of note, patient seen Dr. Luna on 03/14/2023 in the office where he was started on DuoNebs q6hr, Breztri and spirometry was reviewed indicating severe disease. Hospice was brought up at that office visit and patient was amenable to that time.
Patient currently too short of breath and in acute distress to make decision about his code status. He currently denies chest pain, headache, abdominal pain, chills.
PMHx: Chronic respiratory failure on home oxygen, COPD/emphysema, hypertension, hyperlipidemia, hypothyroidism, BPH, PAD, GERD, venous insufficiency, former tobacco use disorder, anemia, pulmonary nocardiosis
PSHx: Bilateral cataract surgery, hernia repair
Past Medical History
Past Medical History: Other (Above as per HPI)
Past Surgical History: Other (Above as per HPI)
Social History
Tobacco: Former Smoker
Alcohol: None
Drug: None
Family History
Family History: Reviewed & Not Pertinent
Allergies / Home Medications
Allergies
Allergy/AdvReac Type Severity Reaction Status Date / Time
sulfamethoxazole Allergy Unknown Verified 03/24/23 21:43
[From Bactrim]
trimethoprim [From Bactrim] Allergy Unknown Verified 03/24/23 21:43
Home Medications
Medication Instructions Recorded Confirmed Last Taken Type
Lactobacillus rhamnosus GG 10 1 cap PO DAILY probiotic 01/20/23 03/24/23 03/04/23 History
billion cell capsule (Culturelle)
acetaminophen 500 mg tablet 1,000 mg PO BID Pain 01/20/23 03/24/23 03/04/23 History
(Tylenol Extra Strength)
albuterol sulfate 90 mcg/actuation 2 puff inhalation R Q6HPRN PRN sob 01/20/23 03/24/23 Unknown History
aerosol inhaler (ProAir HFA)
atorvastatin 20 mg tablet (Lipitor) 20 mg PO DAILY High Cholesterol 01/20/23 03/24/23 03/04/23 History
fluticasone 500 mcg-salmeterol 50 1 inh inhalation R BID 01/20/23 03/24/23 03/04/23 History
mcg/dose blistr powdr for Lung/Breathing Issues
inhalation (Advair Diskus)
levothyroxine 75 mcg tablet 75 mcg PO DAILY AT 0700 Thyroid 01/20/23 03/24/23 03/04/23 History
(Synthroid)
nicotine (polacrilex) 4 mg gum 4 mg buccal Q2H Smoking Cessation 01/20/23 03/24/23 03/04/23 History
simethicone 80 mg chewable tablet 80 mg PO BID gas 01/20/23 03/24/23 03/04/23 History
tamsulosin 0.4 mg capsule (Flomax) 0.4 mg PO DAILY Urinary Issue 01/20/23 03/24/23 03/04/23 History
tiotropium bromide 2.5 2 inh inhalation R DAILY 01/20/23 03/24/23 03/04/23 History
mcg/actuation mist for inhalation Lung/Breathing Issues
(Spiriva Respimat)
Lactobacillus rhamnosus-Bifidobac. 2 cap PO DAILY probiotic #0 caps 01/29/23 03/24/23 03/04/23 Rx
animalis 3 billion cell capsule
([employer])
fluconazole 200 mg tablet 200 mg PO DAILY #18 tabs 03/10/23 03/24/23 Unknown Rx
loperamide 2 mg tablet 4 mg PO BID PRN diarrhea #0 tabs 03/10/23 03/24/23 03/04/23 Rx
omeprazole 10 mg capsule,delayed 10 mg PO DAILY 03/24/23 03/24/23 Unknown History
release
Review of Systems
-
Unable to Obtain full review of systems at this time due to: Acuity
Vitals / Labs / Diagnostic Testing
Vital Signs
Temp Pulse Resp BP Pulse Ox
97.7 F 125 35 136/76 95
03/25/23 07:46 03/25/23 07:30 03/25/23 07:30 03/25/23 06:00 03/25/23 09:08
Lab Data
03/25/23 04:47
03/25/23 04:47
Laboratory Results
03/25/23 03/25/23 03/25/23
03:40 04:47 09:14
PT 15.0 H
INR 1.20
pH 7.35 7.29 L
pCO2 30 L 36
pO2 103 152 H
HCO3 16.6 L 17.3 L
O2 Delivery Level
Microbiology
03/24/23 21:51 Nasal Swab Influenza Types A & B (BREANNA) - Final
Negative for Influenza A & B, NAAT
Negative results must be combined with clinical observations
and patient history.
Nucleic Acid Amplification test (NAAT)performed on the
[employer] platform.
Diagnostic Testing:
Physical Exam
-
HEENT: Normocephalic and Anicteric
Cardiovascular: Peripheral Edema (negative) and Other (tachycardic)
Respiratory: Clear, Wheeze (n), Rales (n), Rhonchi (n) and Accessory Resp Muscle Use
GI: Soft, Non Distended and Non Tender
Neurology: Awake and Alert
Skin: Warm and Dry
General: Respiratory Distress
Assessment
-
Assessment: 73-year-old male former tobacco smoker with a past medical history of severe COPD, emphysema, pulmonary nocardiosis and chronic hypoxemic respiratory failure on 3 L/min with exertion who was recently hospitalized from 03/04
for acute anemia with heme positive stool found to have esophageal candidiasis on EGD with polyps and diverticulosis on colonoscopy. Patient now presents with shortness of breath and body aches. Patient afebrile in the ER to 98.4 �F, tachycardic
to 115, tachypneic to 32, and initially required aerosol mask. Imaging was suggestive of a recurrent bilateral pneumonia. Labs suggestive of YAO, hypercalcemia, leukocytosis, anemia with Hb 10.8, platelets 310. COVID antigen negative. Urinalysis
positive suggestive of UTI. Patient started on antibiotics in the ER, given 1 L NS, Decadron 20 mg, Xopenex and admitted to the IMU for further care. His oxygen requirements unfortunately worsened and he became more tachypneic/SOB and was
transferred to ICU this morning for further care, and critical care services consulted for additional management/recommendations.
Chronic medical conditions SAMPLE COLLECTOR: Chronic respiratory failure on home oxygen, COPD/emphysema, hypertension, hyperlipidemia, hypothyroidism, BPH, PAD, GERD, venous insufficiency, former tobacco use disorder, anemia, pulmonary nocardiosis
Impression:
#HAP - bilateral
#Acute on chronic respiratory failure with hypoxemia due to above
#Positive urinalysis suspicious for UTI
#Severe COPD (post-BD FEV1: 0.90L/35% via PFT from 03/14/2023) with acute exacerbation due to HAP as above
#Tachycardic - due to acute hypoxia/dyspnea with respiratory distress
#Sepsis without shock due to above
#YAO due to sepsis
#Metabolic acidosis with normal AG due to YAO
#Physical deconditioning
Plan:
- Urgent goals of care discussion held and pt transitioned back to DNR/DNI with a modified comfort care plan --> meaning we will continue ABx, steroids, oxygen, and other treatment options but if the pt were to worsen then we will transition to
comfort care at that time; plan for pt to speak with hospice tomorrow assuming he survives the night
- Continue high-flow nasal cannula with goal SpO2 >88%
- prn dilaudid for SOB/air hunger (avoid morphine in setting of YAO)
- Continue Abx with cefepime/vanco; follow up infectious workup; ID on board
- Maintain MAP>65
- Continue systemic steroids with decadron and wean as tolerated
- Maintain euglycemia with goal BG 140-180mg/dL
- Aspiration precautions
- Atrovent + xopenex + budesonide (Rx Breztri at home)
- Renally dose all meds; trend sCr, UOP and serum HCO3
- Replete electrolytes with K>3.5, Mg>1.8, PO4>3
- DVT ppx
Data:
CXR 03-24-2023: Bilateral increased reticulonodular markings, new since previous examination, and highly suggestive of bilateral pneumonia. No evidence for associated pleural effusion.
PFT - 03/14/2023:
Severe obstructive lung defect with postbronchodilator FEV1: 0.9 L / 35% predicted (FEv1/FVC: 35). Negative bronchodilator response. Mild restrictive lung defect with FVC 75% predicted (prebronchodilator).
--- NOTE | 2023-03-25 10:27 | W.PN.UPDATE ---
Update Note
Progress Note Update
Pt transferred to ICU. He is on HFNC. Tachycardic to 120s-130s and tachypneic. I asked the pt if his breathing worsened would he want to be on the ventilator, with the caveat that it will be highly difficult to get him off the vent once we
intubate him. He was overwhelmed and wishes for me to call the sister for goals of care discussion.
I called and spoke with the sister, Yadira, explaining the critically ill state that Dimitris is currently in. Reviewed options of being aggressive including intubation vs DNR/DNI with comfort. She wishes to continue ABx and other treatment options
but given his severe COPD and worsening deconditioning with recurrent hospitalizations + COPD exacerbations, she would like him to be DNR/DNI again as there is a high chance he will require trach once we intubate him.
I answered all her questions, she will come to the hospitla later today with additional family members. Primary team updated.
[2023-03-25 10:37] LABS: Magnesium 1.2 mg/dl (1.6-2.3)
--- NOTE | 2023-03-25 10:38 | PTCARENOTE ---
Received pt @ 1000 into icu rm [id number] for prolonged SOB/tachypnea w RR into 40's and tachycardia w HR in 130's. Code status reversed by Dr. Chun to prior to transfer. Upon arrival to ICU SpO2 100% on HFNC 55L/100%. Lungs clear. Shallow
breaths; grunting/pursed lip breathing. IV morphine PRN admin for SOB- see APR. Improved tachycardia/tachypnea s/p rn medical surgical; HR currently 110-120's and RR 20's. Dr. Slade to bedside to assess pt and review case. Dr. Slade called pt.'s
sister to discuss plan of care. S/P phone ela teacher phone call to pt,'s sister, pt.'s code status changed back to DNR. Awaiting family to come to bedside.
[2023-03-25 11:43] LABS: APTT 35.3 Sec (23.4-35.0)
[2023-03-25 11:49] LABS: Lactic Acid 1.8 mmol/L (0.7-2.0)
[2023-03-25] MEDS: VANCOCIN HCL 500 MG 100 IV (12:19)
[2023-03-25] MEDS: MAXIPIME 1000 MG IV (12:19)
[2023-03-25] MEDS: ATROVENT NEBULES 0.5 MG INH ×2 (13:17→19:59)
--- NOTE | 2023-03-25 13:24 | PTCARENOTE ---
Pt. remains on 55L/100% HFNC, SpO2 100%. Tachycardia and tachypnea remains improved w HR in 110's and RR in 20's. Pt.'s sister to bedside, updated. Hygiene care completed and pt repositioned. Instructed on how to report care concerns and call
huerta w in reach.
--- NOTE | 2023-03-25 14:22 | CON.ID ---
Consultation
-
Date/Time Consultation Requested: 03/25/2023 04:08
Date/Time Consultation Performed: 03/25/2023 1409
Requesting Provider: Dr. Bradley
Performing Provider: Dr. Swain
Reason for Consultation: Leukocytosis
Chief Complaint / Past History
History of Present Illness
Dimitris Ramos is a 73-year-old man being evaluated at the request of Dr. Bradley regarding leukocytosis. History is obtained from chart review, along with patient interview.
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 At that time, he presented to [facility] on 12/11/2022 secondary to progressive shortness of breath
subjective fevers at home, along with chills. At this time he also reported weight loss and a nonproductive cough. Further workup included CT of the head to assess for brain mass which was reported negative. The patient was admitted and received
IV antibiotics. According to reviewed notes the patient initially was on Bactrim and imipenem, but found not to be able to tolerate Bactrim, and antibiotics changed to minocycline. During his hospitalization he showed clinical improvement.
Ultimately he was transition to oral Augmentin and Azithromycin and he was discharged to home. He subsequently came to the local area to be near family and friends. He had decline and presented to [facility] on 01/21 because of increasing
shortness of breath, subjective fevers and cough. He remained hospitalized through 01/29/2023, and discharged to home on ceftriaxone for at least an additional month. He recently was seen in the outpatient setting, and noted to have ongoing
shortness of breath, although stable from discharge. At that point he had not yet seen Pulmonary as insurance coverage had not started. I elected to continue with ceftriaxone for an additional 1 month, through his tentative initial visit with
Pulmonary on March 13.
He presented back to [facility] on 03/05 with severe anemia. During that hospitalization, he was continued on ceftriaxone, and discharged to home on 03/10 to continue antibiotic therapy. Following discharge, he stopped ceftriaxone secondary
to reported side effects (tingling in the extremities approximately 1/2-hour after administration). He was seen in the office 2 weeks ago, and at that point in time further antibiotics were discontinued, and he was going to pursue palliative care.
He presents back to [facility] last evening secondary to worsening shortness of breath along with cough. He was placed back on antibiotics, and Infectious Diseases is asked to comment upon further antimicrobial therapy.
Currently he notes ongoing shortness of breath and has been placed upon high flow O2. He reports some cough, but not producing any sputum.
Past History
Additional Past Medical History:
Nocardia pneumonia
COPD
Severe emphysema
Dyslipidemia
HTN
Hypothyroidism
BPH
Cataracts
PAD
GERD
Venous insufficiency
Inguinal hernia
Allergy History:
sulfamethoxazole [From Bactrim] Allergy (Verified 03/24/23 21:43)
Unknown
trimethoprim [From Bactrim] Allergy (Verified 03/24/23 21:43)
Unknown
Medications Reviewed: Yes
Current Antibiotics:
Cefepime
Vancomycin
Social History
Tobacco: Former Smoker
Alcohol: None
Drug: None
Personal: Single
Living: With Family
Employment: Not Employed
Family History
Family History: Not Pertinent
Review of Systems
Vital Signs
Temp Pulse Resp BP Pulse Ox
99.3 F 120 28 133/67 100
03/25/23 12:08 03/25/23 13:45 03/25/23 13:45 03/25/23 13:45 03/25/23 13:45
Physical Exam
Physical Exam
Constitutional: Comfortable, Acutely Ill, Chronically Ill, Non-toxic and Cachetic
Head: Normocephalic
Eyes: Pupils Equal, Pupils Round, No Conjunctival Hemorrhage and Sclera Anicteric
Oral: No Thrush and No Ulcers
Cardiovascular: S1/S2; Negative S3/S4
Pulmonary: Coarse and Other (labored); Negative Wheezes
Gastrointestinal: Soft, Non Distended, Normal Bowel Sounds, No Rebound and No Guarding
Extremities: Edema; Negative Cyanosis or Erythema
Neurological: Awake and Alert
Psychological: Calm
Lab / Diagnostic Study Results
03/25/23 04:47
03/25/23 04:47
Abs Immat Gran (auto) 0.1 10^3/uL (0-0.05) H 03/24/23 21:49
Absolute Neuts (auto) 17.2 10^3/uL (1.4-6.5) H 03/24/23 21:49
Absolute Lymphs (auto) 0.6 10^3/uL (1.2-3.4) L 03/24/23 21:49
Absolute Monos (auto) 0.4 10^3/uL (0.1-0.6) 03/24/23 21:49
Absolute Basos (auto) 0.1 10^3/uL (0-0.2) 03/24/23 21:49
Total Counted 100 03/25/23 04:47
Immature Gran % 0.4 % (0-0.5) 03/24/23 21:49
Neutrophils % 93.5 % (42.2-75.2) H 03/24/23 21:49
Lymphocytes % 3.2 % (20.5-51.1) L 03/24/23 21:49
Monocytes % 2.1 % (1.7-9.3) 03/24/23 21:49
Eosinophils % 0.2 % (0-6) 03/24/23 21:49
Basophils % 0.6 % (0-2) 03/24/23 21:49
Abs Neuts (Manual) 13.4 10^3/uL (1.4-6.5) H 03/25/23 04:47
Segmented Neutrophils 76 % (42-75) H 03/25/23 04:47
Band Neutrophils 18 % (0-3) H 03/25/23 04:47
Lymphocytes (Manual) 1 % (20-51) L 03/25/23 04:47
PT 15.0 Sec (11.4-14.6) H 03/25/23 04:47
INR 1.20 03/25/23 04:47
Lactic Acid Cancelled 03/25/23 16:08
Ur Squamous Epith Cells 0-2 /LPF (Few) 03/24/23 22:37
Microbiology Results
Micro:
03/25/23 11:21 Nasal Screen MRSA (PCR) - Final
Nose Staph aureus MRSA
03/25/23 04:47 Blood Culture - Pending
Blood/Venous
03/25/23 04:47 Blood Culture - Pending
Blood/Venous
03/24/23 22:37 Urine Culture - Pending
Urine
03/24/23 21:51 Influenza Types A & B (BREANNA) - Final
Nasal Swab Negative for Influenza A & B, NAAT
Negative results must be combined with clinical observations
and patient history.
Nucleic Acid Amplification test (NAAT)performed on the
[employer] platform.
Imaging:
03/24/2023 CXR (portable): Increased reticulonodular markings within the right mid to lower lung, and involving most of the left lung. New since prior exam and suggestive of bilateral pneumonia.
Assessment / Plan
Leukocytosis
Bilateral pneumonia
Nocardia pneumonia
COPD
Severe emphysema
Dyslipidemia
HTN
Hypothyroidism
BPH
Cataracts
PAD
GERD
Venous insufficiency
Inguinal hernia
Recommendations:
I had a long discussion with Dimitris and his sister who was present at the bedside. They understand the gravity of the situation, and that medical therapy would not likely affect any significant outcome and would only prolong the inevitable.
Moving forward, they would like to proceed with comfort measures. They understand that antibiotics will be discontinued.
Care Review
Plan reviewed with: Physician (Critical Care; Hospitalist)
[2023-03-25] MEDS: MAGNESIUM OXIDE 500 MG PO (16:06)
[2023-03-25] MEDS: DILAUDID 0.25 MG IV ×2 (16:06→19:31)
--- NOTE | 2023-03-25 19:30 | PTCARENOTE ---
Rec'd pt resting in bed,family at bedside, oriented, ST, bp stable, weak distal pulses, + LE edema, skin warm/dry, O2 via hi flow- 55 liters/ 100% o2, sat 100, + TRAN, tachypneic, shallow, dilaudid 0.25mg iv given for labored breathing,+ bowel
sounds, no bm, NPO except for ice chips, galeano draining yellow urine; sisters at bedside- updated on plan, will be in tomorrow for hospice consult
[2023-03-25] MEDS: VIBRAMYCIN 260 MG IV (19:33)
[2023-03-25] MEDS: PULMICORT 0.5 MG INH (19:59)
[2023-03-25] MEDS: UNASYN IV (20:40)
[2023-03-25] MEDS: DILAUDID 0.5 MG IV (21:25)
--- NOTE | 2023-03-25 21:29 | PTCARENOTE ---
dilaudid 0.5mg iv given for resp distress
[2023-03-25] MEDS: DESENEX/MITRAZOL/ZEASORB TOPICAL (21:56)
[2023-03-25] MEDS: DESENEX/MITRAZOL/ZEASORB 1 APPLIC TOPICAL (22:49)
[2023-03-26] VITALS (16 sets, daily range): BP systolic 83–124; BP diastolic 54–87; BMI 20.7
--- NOTE | 2023-03-26 | PTCARENOTE ---
sys reviewed, CHG bath done, linens changed, sister staying the night
[2023-03-26] MEDS: ATROVENT NEBULES 0.5 MG INH ×4 (01:04→19:50)
[2023-03-26] MEDS: XOPENEX 1.25 MG INHALANT SOLUTION INH ×4 (01:05→19:51)
[2023-03-26] MEDS: DECADRON 4 MG IV ×3 (03:25→19:39)
[2023-03-26 03:31] LABS: Hematocrit 28.3 % (39.0-52.0); Hemoglobin 8.9 g/dL (13.0-18.0); Mean Corp Hgb Conc. 31.4 g/dL (33.0-37.0); Mean Corpuscular Hgb 29.1 pg (27.0-31.0); Mean Corpuscular Volume 92.5 fL (80.0-94.0); Mean Platelet Volume 10.1 fL (7.4-10.4); Platelet Count 199 10^3/uL (130-400); Red Blood Cell Count 3.06 10^6/uL (4.70-6.10); Red Cell Dist. Width 16.9 % (11.5-14.5); White Blood Cell Count 6.6 10^3/uL (4.8-10.8)
--- NOTE | 2023-03-26 03:57 | PTCARENOTE ---
resting comf, no changes
[2023-03-26 04:16] LABS: Chloride 111 mmol/L (98-107)
[2023-03-26 04:21] LABS: ALT (SGPT) 18 U/L (0-50); AST (SGOT) 40 U/L (17-59); Albumin 2.6 g/dl (3.5-5.0); Alkaline Phosphatase 47 U/L (38-126); Blood Urea Nitrogen 85 mg/dl (9-20); Calcium 9.6 mg/dl (8.4-10.2); Carbon Dioxide 15 mmol/L (22-30); Estimated Creatinine Clearance 36 ml/min; Glucose 126 mg/dl (70-99); Magnesium 1.7 mg/dl (1.6-2.3); Phosphorus 5.8 mg/dl (2.5-4.5); Potassium 5.4 mmol/L (3.5-5.1); Sodium 139 mmol/L (135-145); Total Bilirubin 0.7 mg/dl (0.2-1.3); Total Protein 5.7 g/dl (6.3-8.2); eGFR 49.16
[2023-03-26 04:22] LABS: Band Neutrophils 14 % (0-3); Lymphocytes 6 % (20-51); Monocytes 2 % (2-9); Normal RBC Morphology Yes; Platelets Checked Yes; Segmented Neutrophils 78 % (42-75); Total Cells Counted 100
[2023-03-26] MEDS: SODIUM BICARBONATE 50 MEQ IV (04:39)
--- NOTE | 2023-03-26 04:41 | PTCARENOTE ---
1 amp sodium bicarb iv given per order; Hi flow changed to 50 liters/ 100% by resp
[2023-03-26] MEDS: DILAUDID 0.5 MG IV ×6 (07:07→22:43)
[2023-03-26] MEDS: DIFLUCAN 200 MG PO (07:07)
[2023-03-26] MEDS: HEPARIN 5000 UNITS SC (07:07)
[2023-03-26] MEDS: FLOMAX 0.400000000000000022 MG PO (07:08)
[2023-03-26] MEDS: DESENEX/MITRAZOL/ZEASORB 1 APPLIC TOPICAL ×2 (07:08→19:50)
[2023-03-26] MEDS: PULMICORT 0.5 MG INH ×2 (07:16→19:50)
[2023-03-26] MEDS: VIBRAMYCIN 260 MG IV (07:25)
[2023-03-26] MEDS: UNASYN IV ×2 (07:25→19:39)
--- NOTE | 2023-03-26 08:35 | PTCARENOTE ---
Completed assessment, vital signs ongoing and as documented. Continue with ongoing trends. Family in and out at bedside. Continue emotional support, supportive cares and comfort measures. Family await hospice team. Will update plan of cares. Patient
medication follow up with pharmacy, medications review with pharmacy and [facility]. Repositioned, oral cares , pillows and ongoing comfort/pain assessments.
--- NOTE | 2023-03-26 08:56 | PTCARENOTE ---
Update with Hospitalist team. Dr Chun at bedside with patient and family. Continue follow up plan of cares. Ongoing comfort measures, supportive cares will follow updated orders.
--- NOTE | 2023-03-26 09:00 | W.PN.INTV ---
Today's Communication / Plan
Recommendations
Abx
Supplemental O2 with HFNC
Comfort care
Hospice
Patient being transitioned to hospice care. Press Operator Printing/pulmonary service will now sign off. Please reconsult if there are any additional questions/concerns.
Assessment
-
Assessment: 73-year-old male former tobacco smoker with a past medical history of severe COPD, emphysema, pulmonary nocardiosis and chronic hypoxemic respiratory failure on 3 L/min with exertion who was recently hospitalized from 03/04
for acute anemia with heme positive stool found to have esophageal candidiasis on EGD with polyps and diverticulosis on colonoscopy. Patient now presents with shortness of breath and body aches. Patient afebrile in the ER to 98.4 �F, tachycardic
to 115, tachypneic to 32, and initially required aerosol mask. Imaging was suggestive of a recurrent bilateral pneumonia. Labs suggestive of YAO, hypercalcemia, leukocytosis, anemia with Hb 10.8, platelets 310. COVID antigen negative. Urinalysis
positive suggestive of UTI. Patient started on antibiotics in the ER, given 1 L NS, Decadron 20 mg, Xopenex and admitted to the IMU for further care. His oxygen requirements unfortunately worsened and he became more tachypneic/SOB and was
transferred to ICU this morning for further care, and critical care services consulted for additional management/recommendations.
Chronic medical conditions CAD APPLICATION SUPPORT SPECIALIST: Chronic respiratory failure on home oxygen, COPD/emphysema, hypertension, hyperlipidemia, hypothyroidism, BPH, PAD, GERD, venous insufficiency, former tobacco use disorder, anemia, pulmonary nocardiosis
Impression:
#HAP - bilateral
#Acute on chronic respiratory failure with hypoxemia due to above
#Positive urinalysis suspicious for UTI - GNR seen on urine cx
#Severe COPD (post-BD FEV1: 0.90L/35% via PFT from 03/14/2023) with acute exacerbation due to HAP as above
#Tachycardic - due to acute hypoxia/dyspnea with respiratory distress
#Sepsis without shock due to above
#YAO due to sepsis
#Metabolic acidosis with normal AG due to YAO
#Physical deconditioning
Plan:
- Urgent goals of care discussion held yesterday and pt transitioned back to DNR/DNI with a modified comfort care plan --> meaning we continued ABx, steroids, oxygen, and other treatment options; hospice is consulted and plan is to transition
patient to hospice today. Non-comfort related medications will be discontinued.
- Continue high-flow nasal cannula with goal SpO2 >88%
- prn dilaudid for SOB/air hunger (avoid morphine in setting of YAO)
- Continue Abx with unasyn in meantime; ID on board; follow-up urine culture species/sensitivities
- Maintain MAP>65
- Continue systemic steroids with decadron and wean as tolerated
- Maintain euglycemia with goal BG 140-180mg/dL
- Aspiration precautions
- Atrovent + xopenex + budesonide (Rx Breztri at home)
- Renally dose all meds; trend sCr, UOP and serum HCO3
- Replete electrolytes with K>3.5, Mg>1.8, PO4>3
- DVT ppx
Patient being transitioned to hospice care. Press Operator Printing/pulmonary service will now sign off. Please reconsult if there are any additional questions/concerns. Thank you for allowing us to be involved in the care of this patient.
Data:
CXR 03-24-2023: Bilateral increased reticulonodular markings, new since previous examination, and highly suggestive of bilateral pneumonia. No evidence for associated pleural effusion.
PFT - 03/14/2023:
Severe obstructive lung defect with postbronchodilator FEV1: 0.9 L / 35% predicted (FEv1/FVC: 35). Negative bronchodilator response. Mild restrictive lung defect with FVC 75% predicted (prebronchodilator).
Subjective Dataa
Subjective Data
Date of Service:
Date of Service: March 26, 2023
Chief Complaint: Press Operator Printing Follow Up and Pulmonary Follow Up
Subjective:
Patient seen this morning. On high flow at 100% FiO2, saturating 90%. Heart rate 105. Spoke with patient's family. Hospice is pending.
Review of Systems
General: Other (Negative unless mentioned above)
Objective Data
Data Reviewed
Vital Signs / I&O / Oxygen:
Vital Signs
Temp Pulse Resp BP Pulse Ox
97.7 F 105 14 103/60 99
03/26/23 08:31 03/26/23 10:00 03/26/23 10:00 03/26/23 08:31 03/26/23 10:00
Intake and Output
03/25/23 03/26/23 03/27/23
06:59 06:59 06:59
Intake Total 450 / 450 80 / 80
Output Total 200 / 200 550 / 550
Balance -200 / -200 -100 / -100 80 / 80
SaO2 99
Nasal Cannula flow liters per 50
minute
Physical Exam
General: Comfortable
HEENT: Normocephalic and Anicteric
Cardiovascular: Peripheral Edema (Negative) and Other (Tachycardic)
Respiratory: Wheeze (Negative), Crackles (bibasilar), Rhonchi (Negative) and Accessory Resp Muscle Use
GI: Soft, Non Distended and Non Tender
Neurology: Lethargic (Easily arousable to voice and following commands)
Skin: Warm and Dry
Labs/Micro/Reports
Lab Data
03/26/23 03:22
03/26/23 03:22
Laboratory Results
03/25/23
11:21
APTT 35.3 H
Microbiology
03/25/23 04:47 Blood/Venous Blood Culture - Preliminary
No Growth in 24 hours- Final report to follow
03/25/23 04:47 Blood/Venous Blood Culture - Preliminary
No Growth in 24 hours- Final report to follow
03/25/23 22:37 Urine Legionella Urinary Antigen - Final
Negative for Legionella pneumophila Serogroup 1 antigen.
A negative result does not rule out the possiblity of
Legionella infection due to other serogroups or species of
Legionella. Clinical correlation is recommended.
03/25/23 22:37 Urine Streptococcus pneumoniae Antigen (M - Final
Negative for Streptococcus pneumoniae antigen.
A negative result does not exclude infection with
Streptococcus pneumoniae. Clinical correlation is
recommended.
03/25/23 11:21 Nose Nasal Screen MRSA (PCR) - Final
Staph aureus MRSA
03/24/23 21:51 Nasal Swab Influenza Types A & B (BREANNA) - Final
Negative for Influenza A & B, NAAT
Negative results must be combined with clinical observations
and patient history.
Nucleic Acid Amplification test (NAAT)performed on the
[employer] platform.
--- NOTE | 2023-03-26 09:13 | W.PN.HOSP.TC ---
Today's Communication/Plan
-
anticipate d/c to inpt hospice later today
Assessment / Plan
Assessment / Plan
pt is a 73 year old male
Severe sepsis with metabolic acidosis, hypoxemic respiratory failure due to pneumonia (likely bacteria, health-care associated, patchy infiltrates worse than prior exam) UTI (CAUTI POA as pt with chronic galeano on admission) and YAO, cultures neg to
date except for MRSA screen positive--spoke with sister who reversed code status to FULL CODE--transferred to ICU and then code status reversed back to DNR/DNI after discussion with pulm/ID--await hospice input
COPD exacerbation--Nebs, steroids, O2
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
YAO-- likely due to sepsis--creat worsening--cont IVF and DIRECTOR STUDENT UNION galeano--going on hospice
UTI--(CAUTI as pt with chronic galeano cath on admission) --blood and urine cx--IV abx
Hypercalcemia--Check ionized calcium , IVF, repeat labs in am and monitor
Chronic medical issues:
chronic hypoxic respiratory failure
Nocardia infection--as able
Essential HTN
LE edema
GERD
BPH
urinary retention, Galeano catheter care
HLD
Hypothyroidism--check TSH
code status--back to DNR/DNI
DVT proph - Lovenox
spoke with sister
Total Critical Care Time 33 minutes. I was immediately available to the patient and staff. I personally examined, reviewed labs, diagnostic images/reports, interpretations, treatment plans, discussed patient care with other providers and family
or caregivers (if patient is unable to make decisions), entered orders as appropriate and documented the medical record.
Anticipated Discharge: Today
Subjective/Interval History
-
Date of Service: March 26, 2023
pt on HI RADHA O2--back to DNR/DNI--awaiting hospice
Objective Data
-
Labs:
Laboratory Results
03/26/23
03:22
WBC 6.6
Hgb 8.9 L
Hct 28.3 L
Plt Count 199 D
Sodium 139
Potassium 5.4 H
Chloride 111 H
Carbon Dioxide 15 L
BUN 85 H
Creatinine 1.5 H
Glucose 126 H
Calcium 9.6
Total Bilirubin 0.7
AST 40
ALT 18
Alkaline Phosphatase 47
Vital Signs:
max temp for 24 hours
03/25/23
19:00
Temp 99.8 F
Vital Signs
Temp Pulse Resp BP Pulse Ox
97.7 F 112 24 103/60 98
03/26/23 08:31 03/26/23 08:31 03/26/23 08:31 03/26/23 08:31 03/26/23 08:31
I&O
03/25/23 03/26/23 03/27/23
06:59 06:59 06:59
Intake Total 450 / 450 80 / 80
Output Total 200 / 200 550 / 550
Balance -200 / -200 -100 / -100 80 / 80
Review of Systems
-
Unable to obtain full review of systems at this time due to: Acuity
Physical Exam
-
General: Appears Chronically Ill
HEENT: Normocephalic, Atraumatic and Oxygen (HI RADHA)
Respiratory: Rhonchi
Cardiac: Regular Rhythm, S1/S2 and Tachycardic
GI: Soft, Nontender, Nondistended and Normal Bowel Sounds
Musculoskeletal: No Clubbing, No Cyanosis and No Edema
Neuro: Awake
Psych: Calm
--- NOTE | 2023-03-26 09:19 | HOSPNOTE ---
Patient will be admitted inpatient hospice today. Another sister should be arriving in 30 minutes. Admissions was called and hospice chart is ready. Referral sent and family in agreement with hospice services.
--- NOTE | 2023-03-26 09:23 | CM ---
Patient seen at bedside with physician. Patient sister also present, anticipating Hospice consult today. CM sent referral to [facility] hospice via all scripts. CM will continue to follow for discharge planning needs.
Plan; hospice consult.
--- NOTE | 2023-03-26 10:12 | PTCARENOTE ---
Update in am rounds with critical care team. Continue recreational counselor follow up and evaluation. Continue with plan of hospice cares, comfort measures maintained at this assessment. Family at bedside with patient. Continue hourly rounds or more frequent
as needed.
--- NOTE | 2023-03-26 10:19 | W.PN.ID1 ---
Date of Service
Date of Service: March 26, 2023
Today's Communication
Continue Unasyn. Await family meeting with hospice.
Assessment / Plan
Leukocytosis
Bilateral pneumonia
Nocardia pneumonia
COPD
Severe emphysema
Dyslipidemia
HTN
Hypothyroidism
BPH
Cataracts
PAD
GERD
Venous insufficiency
Inguinal hernia
Recommendations:
Following discussion yesterday, patient had reservations about stopping all antibiotics completely, and Unasyn + Doxy was restarted.
At present, continue with Unasyn.
Further doxycycline can likely be discontinued.
Patient to meet with hospice later today.
Family at the bedside. All questions answered.
����������������������������������������������������������
Chief Complaint
-: Leukocytosis
Subjective / Review of Systems
Patient seen and examined. Remains on high flow O2.
Vital Signs / Physical Exam
Vital Signs
Vital Signs
Temp Pulse Resp BP Pulse Ox
97.7 F 105 14 103/60 99
03/26/23 08:31 03/26/23 10:00 03/26/23 10:00 03/26/23 08:31 03/26/23 10:00
Physical Exam
Constitutional: Comfortable, Chronically Ill, Non-toxic and Cachetic
Eyes: Sclera Anicteric
Cardiovascular: Regular Rate
Pulmonary: Coarse and Other (Mildly labored breathing.)
Gastrointestinal: Soft, Non Tender and Non Distended
Skin: Negative Jaundice
Neurological: Awake
Psychological: Calm
Objective Data
Lab Data
Lab Results
03/26/23 03:22
03/26/23 03:22
PT 15.0 Sec (11.4-14.6) H 03/25/23 04:47
INR 1.20 03/25/23 04:47
APTT 35.3 Sec (23.4-35.0) H 03/25/23 11:21
Estimated Creat Clear 36 ml/min 03/26/23 03:22
Lactic Acid Cancelled 03/25/23 16:08
Total Bilirubin 0.7 mg/dl (0.2-1.3) 03/26/23 03:22
AST 40 U/L (17-59) 03/26/23 03:22
ALT 18 U/L (0-50) 03/26/23 03:22
Alkaline Phosphatase 47 U/L (38-126) 03/26/23 03:22
Most recent labs reviewed.
Micro Results:
03/25/23 04:47 Blood Culture - Preliminary
Blood/Venous No Growth in 24 hours- Final report to follow
03/25/23 04:47 Blood Culture - Preliminary
Blood/Venous No Growth in 24 hours- Final report to follow
03/25/23 22:37 Legionella Urinary Antigen - Final
Urine Negative for Legionella pneumophila Serogroup 1 antigen.
A negative result does not rule out the possiblity of
Legionella infection due to other serogroups or species of
Legionella. Clinical correlation is recommended.
Streptococcus pneumoniae Antigen (M - Final
Negative for Streptococcus pneumoniae antigen.
A negative result does not exclude infection with
Streptococcus pneumoniae. Clinical correlation is
recommended.
03/25/23 11:21 Nasal Screen MRSA (PCR) - Final
Nose Staph aureus MRSA
03/24/23 22:37 Urine Culture - Pending
Urine
03/24/23 21:51 Influenza Types A & B (BREANNA) - Final
Nasal Swab Negative for Influenza A & B, NAAT
Negative results must be combined with clinical observations
and patient history.
Nucleic Acid Amplification test (NAAT)performed on the
[employer] platform.
Imaging:
03/24/2023 CXR (portable): Increased reticulonodular markings within the right mid to lower lung, and involving most of the left lung. New since prior exam and suggestive of bilateral pneumonia.
Care Review
Plan reviewed with: Physician (Critical Care)
--- NOTE | 2023-03-26 12:12 | PTCARENOTE ---
Hospice team at bedside with family. Continue supportive cares, teaching, emotional support and comfort measures ongoing. Follow up with family as we await other sister to arrive. Continue to reinforce teaching. Repositioning, back rubs and ongoing
follow up with pulmonary status. Hourly rounds ongoing. Presently remains on 100%fio2 with 55lpm HiFlo.
--- NOTE | 2023-03-26 12:52 | PTCARENOTE ---
Infectious disease and supervisor farm equipment maintenance into see patient at bedside. Continue follow up. Await return of family at this time. Continue ongoing rounds and comfort measures..
--- NOTE | 2023-03-26 14:34 | PTCARENOTE ---
Again update with hospice team. Review events, assessment trends and plan of cares. Await follow up with family and end of life plan of cares. Continue supportive cares and emotional support. Ocean Lifeguard Specialist at bedside with family.
--- NOTE | 2023-03-26 16:08 | HOSPNOTE ---
Spoke with 2 of the patients sisters this morning about Hospice philosophy and care.They understand the seriousness of the patients condition and want him to be comfortable. At this time that have not yet decided to stop ABT . They would like time
to discuss with other family members. Support provided. DR Sanchez is aware.
--- NOTE | 2023-03-26 18:23 | HOSPNOTE ---
Patients has signed onto Hospice services. Patients 3 sisters and niece were in the room.His sister Aimee signed the consents. Patient himself made the decision . Dr Dennis was made aware. Patient will remain GIP at this time because symptoms
cannot be managed outside the hospital setting. He needs skilled assessment of symptoms and titration of comfort meds for optimal comfort. He will be assessed daily and discharged home if symptoms become managed.
--- NOTE | 2023-03-26 18:23 | PTCARENOTE ---
Patient update. Hospice team return to sit with entire family. Plan to move forward with hospice cares. Comfort measures ongoing. Emotional support and supportive cares continue. Hospice team at bedside.
[2023-03-26] MEDS: HEPARIN SC (19:40)
--- NOTE | 2023-03-26 20:06 | PTCARENOTE ---
Pt received at 19:00, family at bedside. Pt Ox3, drowsy but easily arousable to verbal stimuli. Tachypneic, remains on HFNC 55L/100%. PRN dilaudid given for SOB. HR 110s. Chronic galeano in place, yellow urine. Safe environment maintained, call huerta
within reach.
[2023-03-27] MEDS: DILAUDID 0.5 MG IV ×2 (00:50→07:43)
[2023-03-27] MEDS: ATIVAN 0.5 MG IV (01:01)
[2023-03-27] MEDS: NSS (PRESERVATIVE FREE) 0.25 ML IV (01:03)
--- NOTE | 2023-03-27 01:08 | PTCARENOTE ---
Pt yelling out that he needs more oxygen and desatting into the 70s. Pulling O2 off and fighting when staff is trying to replace his HFNC. Pt given PRN dilaudid and x1 of ativan. Pt now appears comfortable, pulse ox in the high 90s. Pts sister
remains at bedside.
[2023-03-27] MEDS: DECADRON 4 MG IV (04:55)
--- NOTE | 2023-03-27 07:15 | W.DCSUMMARY ---
Discharge Summary
Discharge Data
Date of Admission: 03/25/23
Date of Discharge: 03/27/23
-
Pending Results: No
Hospital Course
Primary care physician : Michael Green
Principal Discharge diagnosis : Severe sepsis with metabolic acidosis, acute hypoxemic respiratory failure due to pneumonia, catheter associated urinary tract infection from chronic Cohen catheter on admission, acute kidney injury, chronic
obstructive pulmonary disease exacerbation
Chronic Discharge diagnosis : Nocardia infection, hypercalcemia, essential hypertension, lower extremity edema, gastroesophageal reflux disease, benign prostatic hyperplasia, hypothyroidism, hyperlipidemia
Hospital Course : Patient is a 73-year-old male who was discharged from the hospital March 10, 2023 with pulmonary nocardia infection and severe chronic obstructive pulmonary disease. He did not tolerate outpatient IV Rocephin and declined oral
antibiotics. Patient had been having discussions with palliative care as an outpatient. Patient came to the emergency department with acute worsening dyspnea at rest and exertion along with significant lower back pain. He was found to have a
sacral region pressure wound without skin tear. He denied chest pain, nausea, vomiting, diarrhea, fevers. He did have cough along with shortness of breath and increased work of breathing. Patient also had a chronic indwelling Cohen catheter.
Patient was admitted.
Problem #1: Severe sepsis with metabolic acidosis, acute hypoxemic respiratory failure due to pneumonia, catheter associated urinary tract infection from chronic Cohen catheter on admission, acute kidney injury, and chronic obstructive pulmonary
disease exacerbation. Upon my evaluation of the patient on March 25, 2023, patient was in severe respiratory distress. He was on high flow oxygen as he refused to go back on BiPAP. He was tachycardic and tachypneic. I spoke with the patient
regarding whether or not he wanted to be intubated, and he told me to speak with his sister because he 'cannot think straight at this time'. I did speak with the patient's sister who reverse his DNR status as this possibly could be reversible. He
was then transferred to the intensive care unit.
Upon arrival to the intensive care unit, movie shot cameraman and infectious disease were both consulted and spoke at length with the patient's sister as well as the patient. CODE STATUS was changed back to DNR/DNI and comfort/hospice discussions were
started. Hospice was consulted. Patient also had 2 other sisters that were arriving to the hospital as well. Most of March 26, 2023 comprised of ongoing discussions between hospice, movie shot cameraman, infectious disease regarding starting and
converting to inpatient hospice. Consents were signed late March 26 at 6:30 PM. Patient is being transitioned to inpatient hospice.
Problem #2: All other medical issues. These include Nocardia infection, hypercalcemia, essential hypertension, lower extremity edema, gastroesophageal reflux disease, benign prostatic hyperplasia, hypothyroidism, hyperlipidemia. Medications were
continued as able.
Problem #3: Disposition. Inpatient hospice. See discussion above.
Patient is being admitted to inpatient hospice. If there are any questions regarding this dictation or his hospital stay, please do not hesitate to call. Our office number is [phone].
Discharge Plan
-
Patient Disposition: Hospice - Inpatient
Discharge Diagnosis/Procedures: Severe sepsis with metabolic acidosis and hypoxemic respiratory failure due to pneumonia along with acute kidney injury and urinary tract infection associated with chronic Cohen catheter, chronic obstructive pulmonary
disease exacerbation, Nocardia infection, hypercalcemia, essential hypertension, lower extremity edema, gastroesophageal reflux disease, benign prostatic hyperplasia, urinary retention, hyperlipidemia, hypothyroidism
Referrals:
Michael Green MD [Family Provider] -
Prescriptions:
No Action
atorvastatin [Lipitor] 20 mg Tablet
20 mg PO DAILY
levothyroxine [Synthroid] 75 mcg Tablet
75 mcg PO DAILY AT 0700
tamsulosin [Flomax] 0.4 mg Capsule
0.4 mg PO DAILY
nicotine (polacrilex) 4 mg Gum
4 mg BUCCAL Q2H
fluticasone propion-salmeterol [Advair Diskus] 500-50 mcg/dose Blister With Device
1 inh INHALATION R BID
albuterol sulfate [ProAir HFA] 90 mcg/actuation Hfa Aerosol Inhaler
2 puff INHALATION R Q6HPRN PRN (Reason: sob)
acetaminophen [Tylenol Extra Strength] 500 mg Tablet
1,000 mg PO BID
Culturelle 10 billion cell Capsule
1 cap PO DAILY
simethicone 80 mg Tablet,Chewable
80 mg PO BID
Spiriva Respimat 2.5 mcg/actuation Mist
2 inh INHALATION R DAILY
[facility] 3 billion cell Capsule
2 cap PO DAILY Qty: 0 0RF
fluconazole 200 mg Tablet
200 mg PO DAILY Qty: 18 0RF
loperamide 2 mg Tablet
4 mg PO BID PRN (Reason: diarrhea) Qty: 0 0RF
omeprazole 10 mg Capsule,Delayed Release(Dr/Ec)
10 mg PO DAILY
[2023-03-27] MEDS: HEPARIN 5000 UNITS SC (07:44)
[2023-03-27] MEDS: PULMICORT 0.5 MG INH (08:10)
[2023-03-27] MEDS: XOPENEX 1.25 MG INHALANT SOLUTION INH (08:10)
[2023-03-27] MEDS: ATROVENT NEBULES 0.5 MG INH (08:10)
--- NOTE | 2023-03-27 08:33 | CM ---
Patient now transitioning to Inpatient Hospice. CM will continue to follow for discharge planning needs.
Plan; Inpatient hospice with [facility]
== END 2023-03-27 08:32 | disposition hospice, inpatient (51) | DRG 871 ==
LOC: ICU 03:45
PROVIDERS: Clinical Nurse Specialist Family Health; ADMITTING PHYSICIAN Internal Medicine; ATTENDING PHYSICIAN Internal Medicine; CONSULT PHYSICIAN Internal Medicine Critical Care Medicine; CONSULT PHYSICIAN Internal Medicine Infectious Disease; EMERGENCY PHYSICIAN Emergency Medicine; FAMILY PHYSICIAN Internal Medicine
PROC: 5A09357 Assistance with Respiratory Ventilation, Less than 24 Consecutive Hours, Continuous Positive Airway Pressure (ICD-10-PCS; 2023-03-25)
PROC: 5A0945A Assistance with Respiratory Ventilation, 24-96 Consecutive Hours, High Flow/Velocity Cannula (ICD-10-PCS; 2023-03-25)
DX: A41.9 Sepsis, unspecified organism (principal); J96.21 Acute and chronic respiratory failure with hypoxia; A43.0 Pulmonary nocardiosis; B37.81 Candidal esophagitis; T83.511A Infection and inflammatory reaction due to indwelling urethral catheter, initial encounter; N39.0 Urinary tract infection, site not specified; N17.9 Acute kidney failure, unspecified; E87.29 Other acidosis; R64 Cachexia; R65.20 Severe sepsis without septic shock; Z51.5 Encounter for palliative care; M54.50 Low back pain, unspecified; E03.9 Hypothyroidism, unspecified; I10 Essential (primary) hypertension; R60.0 Localized edema; K21.9 Gastro-esophageal reflux disease without esophagitis; N40.0 Benign prostatic hyperplasia without lower urinary tract symptoms; J43.9 Emphysema, unspecified; E78.00 Pure hypercholesterolemia, unspecified; D64.9 Anemia, unspecified; Y95 Nosocomial condition; E83.52 Hypercalcemia; I87.2 Venous insufficiency (chronic) (peripheral); K40.90 Unilateral inguinal hernia, without obstruction or gangrene, not specified as recurrent; I73.9 Peripheral vascular disease, unspecified; L89.156 Pressure-induced deep tissue damage of sacral region; K44.9 Diaphragmatic hernia without obstruction or gangrene; Y84.6 Urinary catheterization as the cause of abnormal reaction of the patient, or of later complication, without mention of misadventure at the time of the procedure; Y92.9 Unspecified place or not applicable; Z66 Do not resuscitate; Z87.891 Personal history of nicotine dependence; Z79.51 Long term (current) use of inhaled steroids; Z79.890 Hormone replacement therapy; Z88.1 Allergy status to other antibiotic agents; Z88.2 Allergy status to sulfonamides; Z99.81 Dependence on supplemental oxygen; Z68.20 Body mass index [BMI] 20.0-20.9, adult
CPT/HCPCS: 36600; 71045; 80053; 81003; 81015; 82805; 83605; 83735; 83880; 84100; 84484; 85025; 85610; 85730; 86803; 87040; 87077; 87086; 87186; 87449; 87502; 87641; 87811; 87899; 93005; 94640; 94660; 94760; 96361; 96374; 96375; 99285

== ENCOUNTER 2023-03-27 08:37 | Inpatient (IN) | payer OTHER, SELFPAY ==
--- NOTE | 2023-03-27 07:24 | HPS.HSE ---
Family Physician
-
Family Physician: Dimitris Green
Chief Complaint
-
Transitioning to inpatient hospice
History of Present Illness
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
Patient had been having discussions with palliative care as an outpatient.� Patient came to the emergency department with acute worsening dyspnea at rest and exertion along with significant lower back pain.� He was found to have a sacral region
pressure wound without skin tear.� He denied chest pain, nausea, vomiting, diarrhea, fevers.� He did have cough along with shortness of breath and increased work of breathing.� Patient also had a chronic indwelling Cohen catheter.� Patient was
admitted.
Medical History
Past Medical History
Past Medical History: Reports Other
Additional Past Medical History:
Chronic hypoxemic respiratory failure
Nocardia infection
Chronic obstructive pulmonary disease
Essential hypertension
Lower extremity edema
Gastroesophageal reflux disease
Benign prostatic hyperplasia
Urinary retention requiring Cohen catheter
Hyperlipidemia
Hypothyroidism
Past Surgical History: Reports Other
Additional Past Surgical History:
Bilateral cataract surgery
Hernia repair
Social History
Tobacco: Former Smoker
Alcohol: Former
Drug: None
Personal: Single
Living: With Family
Family History
Family History: Not pertinent
Allergies / Home Medications
Allergies reflects when Allergies were last updated in [employer].
Home Medications with original date entered in [employer]
Allergy/Medication List:
Not reconciled
If medication reconciliation has not been performed, why?: Medication List N/A
If Other, explain: Patient being admitted to inpatient hospice
Review of Systems
-
History Source: Patient
A 12 point ROS was completed and negative except as noted: Yes
Constitutional: Reports No Symptoms
EENT: Reports No Symptoms
Respiratory: Reports Trouble Breathing
Cardiac: Reports No Symptoms
Abdomen/GI: Reports No Symptoms
: Reports No Symptoms
Musculoskeletal: Reports No Symptoms
Skin: Reports No Symptoms
Neurological: Reports No Symptoms
Endocrine: Reports No Symptoms
Hematologic/Lymphatic: Reports No Symptoms
Psych: Reports No Symptoms
Physical Exam
Physical Exam
General: Appears Chronically Ill and Cachectic
HEENT: NormoCephalic, Atraumatic and Oxygen (High flow oxygen)
Respiratory: Rhonchi (Right lung field--tachypneic)
Cardiac: S1/S2, Regular Rhythm and Tachycardia
GI: Soft, Non Tender, Non Distended and Normal Bowel Sounds
Genito-urinary: Cohen (Chronic on admission with clear yellow urine)
Musculoskeletal: No Clubbing and No Cyanosis; No No Edema (Trace edema bilaterally)
Skin: Warm
Neuro: Awake
Psych: Calm
Impression/Plan
-
Patient is a 73-year-old male
Upon my evaluation of the patient on March 25, 2023, patient was in severe respiratory distress.� He was on high flow oxygen as he refused to go back on BiPAP.� He was tachycardic and tachypneic.� I spoke with the patient regarding whether or not
he wanted to be intubated, and he told me to speak with his sister because he 'cannot think straight at this time'.� I did speak with the patient's sister who reverse his DNR status as this possibly could be reversible.� He was then transferred to
the intensive care unit.
Upon arrival to the intensive care unit, zigzag stitcher and infectious disease were both consulted and spoke at length with the patient's sister as well as the patient.� CODE STATUS was changed back to DNR/DNI and comfort/hospice discussions were
started.� Hospice was consulted.� Patient also had 2 other sisters that were arriving to the hospital as well.� Most of March 26, 2023 comprised of ongoing discussions between hospice, zigzag stitcher, infectious disease regarding starting� and
converting to inpatient hospice.� Consents were signed late March 26 at 6:30 PM.� Patient is being transitioned to inpatient hospice.
[2023-03-27 08:00] VITALS: BP 120/69
--- NOTE | 2023-03-27 08:49 | CM ---
Patient now GIP hospice with [facility] hospice. Family in transit coming to hospital. CM will continue to follow for discharge planning needs.
Plan; hospice GIP
[2023-03-27] MEDS: ATIVAN 0.5 MG IV ×2 (09:03→13:27)
[2023-03-27] MEDS: MORPHINE SULFATE 1 MG IV ×4 (09:10→12:19)
--- NOTE | 2023-03-27 11:12 | PTCARENOTE ---
pt drowsy in am , pt ST on monitor , BP adequate, pt Resp distress very SOB with any nursing care his 02 sats down to 88% with turns and care, he was given lorazepam and morphine at 0910 prior to his transition to comfort care/ hospice , now he's
had several doses of Morphine for Resp distress, more comfortable than this am , pts sisters at bedside , strategy consultant and pastoral care in to visit family and patient , will continue to monitor and provide emotional support
--- NOTE | 2023-03-27 11:57 | HOSPNOTE ---
Patient is on hospice. I spoke at length with family and all in agreement and feel patient's comfort is priority. The patient will be started on a drip at 2mg. I left my card for family with my contact information. The patient will be seen daily by
a hospice nurse.
--- NOTE | 2023-03-27 12:34 | PTCARENOTE ---
pt has had 4 doses of IV morphine since 909 for discomfort , Resp distress, as per protocol pt to transition to morphine gtt
[2023-03-27] MEDS: MORPHINE 100 IV (13:20)
[2023-03-27] MEDS: ROBINUL 0.200000000000000011 MG IV ×2 (13:27→18:47)
[2023-03-27] MEDS: MORPHINE SULFATE 2 MG IV ×7 (13:35→18:49)
--- NOTE | 2023-03-27 13:48 | PTCARENOTE ---
pt turned in bed and became very sob and anxious , pt med with lorazepam and PRN morphine , morphine gtt started
[2023-03-27] MEDS: ATIVAN 1 MG IV ×3 (15:23→21:25)
--- NOTE | 2023-03-27 15:41 | PTCARENOTE ---
comfort protocol followed, pt received several doses of IVP morphine, his is now on step 3 of protocol
[2023-03-27] MEDS: MORPHINE SULFATE 4 MG IV (16:40)
[2023-03-27] MEDS: MORPHINE SULFATE 6 MG IV ×2 (19:41→21:30)
--- NOTE | 2023-03-27 22:13 | PTCARENOTE ---
evelia on monitor. vp clinical research in room to pronounce.
--- NOTE | 2023-03-27 22:20 | PTCARENOTE ---
pt placed in body bag and transported to [facility]
--- NOTE | 2023-03-27 22:31 | W.PN.DEATH ---
Pronouncement of
-
Called to see patient to pronounce.
No spontaneous heart tones or respirations noted.
Patient not responsive to verbal stimuli.
Patient is pronounced .
Time of : 22:02
Date of : 03/27/23
Cause of : pneumonia, severe chronic obstructive pulmonary disease
Family Notified: Yes (family at bedside at time of )
--- NOTE | 2023-03-28 06:52 | W.DCSUMMARY ---
Discharge Summary
Discharge Data
Date of Admission: 03/27/23
Date of Discharge: 03/27/23
-
Pending Results: No
Hospital Course
Primary care physician : Michael Green
Principal Discharge diagnosis : pna, severe chronic obstructive pulmonary disease
Chronic Discharge diagnosis : Nocardia infection, hypercalcemia, essential hypertension, lower extremity edema, gastroesophageal reflux disease, benign prostatic hyperplasia, hypothyroidism, hyperlipidemia
Hospital Course : Patient was a 73-year-old male with a medical history of pulmonary nocardia infection and severe chronic obstructive pulmonary disease, with chronic hypoxemic respiratory failure on 5 L of oxygen as an outpatient along with chronic
urinary retention requiring chronic Cohen catheter. Patient was admitted to the hospital on March 25, 2023 with severe sepsis with metabolic acidosis, acute on chronic hypoxemic respiratory failure due to pneumonia, catheter associated urinary
tract infection from the chronic Cohen catheter on admission, acute kidney injury, as well as a chronic obstructive pulmonary disease exacerbation. Patient was admitted to inpatient hospice after multiple discussions with patient and family that he
would not want to be intubated or resuscitated.
Patient was started on a morphine drip for comfort as well as as needed morphine boluses and Ativan boluses for anxiety. Patient at 10:02 PM on March 27, 2023. Cause of is listed as pneumonia and severe chronic obstructive
pulmonary disease. Hospice has been notified. Family was at bedside.
Discharge Plan
-
Patient Disposition:
Date/Time
Date/Time: 03/27/23 22:02
Discharge Date and Time
Discharge Date/Time: 03/27/23 22:25
== END 2023-03-27 22:25 | disposition expired | DRG 951 ==
LOC: ICU 08:37
PROVIDERS: ADMITTING PHYSICIAN Internal Medicine; ATTENDING PHYSICIAN Internal Medicine
PROC: 5A0935A Assistance with Respiratory Ventilation, Less than 24 Consecutive Hours, High Flow/Velocity Cannula (ICD-10-PCS; 2023-03-27)
DX: Z51.5 Encounter for palliative care (principal); A41.9 Sepsis, unspecified organism; J96.21 Acute and chronic respiratory failure with hypoxia; R65.20 Severe sepsis without septic shock; T83.511A Infection and inflammatory reaction due to indwelling urethral catheter, initial encounter; N39.0 Urinary tract infection, site not specified; A43.0 Pulmonary nocardiosis; E87.20 Acidosis, unspecified; J44.1 Chronic obstructive pulmonary disease with (acute) exacerbation; N17.9 Acute kidney failure, unspecified; M54.50 Low back pain, unspecified; I10 Essential (primary) hypertension; R60.0 Localized edema; K21.9 Gastro-esophageal reflux disease without esophagitis; N40.0 Benign prostatic hyperplasia without lower urinary tract symptoms; E78.5 Hyperlipidemia, unspecified; E03.9 Hypothyroidism, unspecified; E83.52 Hypercalcemia; L89.90 Pressure ulcer of unspecified site, unspecified stage; Y84.6 Urinary catheterization as the cause of abnormal reaction of the patient, or of later complication, without mention of misadventure at the time of the procedure; Y92.9 Unspecified place or not applicable; Z87.891 Personal history of nicotine dependence; Z66 Do not resuscitate